=== PATIENT | female | born 1985 | race Caucasian/White ===

== ENCOUNTER 2016-08-06 11:03 | Inpatient (IN) | payer OTHER ==
[~2016-08-06] VITALS: Ht 157.5 cm; Wt 56.0 kg
[2016-08-06] VITALS (9 sets, daily range): BP systolic 97–101; BP diastolic 53–64; PULSE 84–107; TEMP 36.7–36.8; O2SAT 90–96; Ht 157.5 cm; Wt 56.0 kg
[~2016-08-06 11:03] MED LIST: ALBU1AER9 INH
[2016-08-06] MEDS ORDERED: METHYLPREDNISOLONE 125 MG VIAL IV STA (11:46)
--- NOTE | 2016-08-06 11:51 | EMERGENCY ROOM VISIT NOTE ---
History Report prepared by Darryl: Minnie Guerra Under the Supervision of: Dr. Enma Franks M.D. First contact with patient: 11:34 Chief Complaint: CONGESTION Stated Complaint: CHEST CONGESTION, TROUBLE BREATHING Nursing Triage Summary: pt to the ED with c/o congestion and cough History of Present Illness The patient is a 31 year old female who presents to the Emergency Room with complaints of persistent congestion that began prior to arrival. She currently rates her discomfort as a 7/10 in severity. The patient's significant states that the patient has been having recurring bronchitis for the past year. He states that the patient has been to walk-in clinics three times, and has been to the emergency department twice for her bronchitis. The patient's states that the patient did not follow up with her PCP's office after each time. He states that the patient has been given prednisone and antibiotics each time, and states that she gets better with them, but the symptoms always return in a couple months. The patient notes chest pain, coughing and congestion. The patient's states that the patient smokes a pack and a half per day. Source of History: patient, spouse/significant other () Onset: prior to arrival Position: other (global) Symptom Intensity: 7/10 Quality: other (congestion) Timing: other (persistent) Associated Symptoms: + chest pain, + cough Note: Associated Symptoms: congestion Review of Systems See HPI for pertinent positives & negatives. A total of 10 systems reviewed and were otherwise negative. Past Medical & Surgical Medical Problems: (1) Asthma exacerbation (2) Cyclitis (3) Hypoxia (4) Marijuana abuse (5) Meconium in amniotic fluid affecting management of mother (6) Normal (7) Pain, dental (8) (9) Schizophrenia (10) SOB (shortness of breath) (11) Tobacco abuse (12) Vaginal bleeding Surgical Problems: (1) No significant past surgical history Family History No significant family history Social History Smoking Status: Current Every Day Smoker Alcohol Use: none Drug Use: none Marital Status: single Housing Status: lives with family Occupation Status: unemployed Current/Historical Medications Scheduled PRN Albuterol (Proair Hfa), 2 PUFF INH Q4 PRN for SOB/Wheezing Efgcfxz-Lrpyrvinsmfow-Mujwovmp (Excedrin Migraine), 1 TAB PO DAILY PRN for Headache Allergies Coded Allergies: No Known Allergies (Verified , 01/01/13) Physical Exam Vital Signs Date Time Temp Pulse Resp B/P Pulse Ox O2 Delivery O2 Flow Rate FiO2 08/06/16 14:31 93 Nasal Cannula 4.0 08/06/16 14:24 109 18 105/74 87 Room Air 08/06/16 14:12 105 20 92 Nasal Cannula 4.0 08/06/16 13:26 94 08/06/16 13:01 87 18 120/66 97 Nebulizer 08/06/16 12:04 87 20 94 Nasal Cannula 4.0 08/06/16 11:34 91 22 95 Nasal Cannula 4.0 08/06/16 11:25 89 Nasal Cannula 4.0 08/06/16 11:24 97 08/06/16 11:16 89 Room Air 08/06/16 11:10 36.4 102 16 118/83 89 Room Air Physical Exam Vital signs reviewed. General: Generally well appearing, on nasal cannula oxygen. HEENT: No scleral icterus, PERRLA, neck supple. Atraumatic. Cardiovascular: Tachycardic rate and regular rhythm, no extra sounds. Pulmonary: Wheezing throughout bilateral lung nascimento. Increased work of breathing. Abdomen: Soft, nontender, nondistended, positive bowel sounds. Musculoskeletal: Atraumatic, no peripheral edema. Neurologic: Patient awake alert and oriented x 3 Skin: Warm, dry, no rash Medical Decision & Procedures ER Provider Diagnostic Interpretation: X-ray results as stated below per interpretation by me and the radiologist: CHEST ONE VIEW PORTABLE CLINICAL HISTORY: wheezing SHORTNESS OF BREATH COMPARISON STUDY: 09/06/2015 FINDINGS: The cardiac and mediastinal contours are normal. There is no evidence of focal pulmonary consolidation. There is no evidence of failure. No pleural effusions are visualized.[ IMPRESSION: No active disease in the chest. Electronically signed by: Twan Pearce M.D. 08/06/2016 12:05 PM Dictated Date/Time: 08/06/2016 12:05 PM Laboratory Results Test 08/06/16 11:33 08/06/16 11:35 08/06/16 15:05 Immature Granulocyte % (Auto) 0.1 % White Blood Count 9.06 K/uL (4.8-10.8) Red Blood Count 4.45 M/uL (4.2-5.4) Hemoglobin 14.0 g/dL (12.0-16.0) Hematocrit 39.9 % (37-47) Mean Corpuscular Volume 89.7 fL (80-100) Mean Corpuscular Hemoglobin 31.5 pg (25-34) Mean Corpuscular Hemoglobin Concent 35.1 g/dl (32-36) Platelet Count 262 K/uL (130-400) Mean Platelet Volume 10.1 fL (7.4-10.4) Neutrophils (%) (Auto) 68.5 % Lymphocytes (%) (Auto) 23.3 % Monocytes (%) (Auto) 4.1 % Eosinophils (%) (Auto) 3.8 % Basophils (%) (Auto) 0.2 % Neutrophils # (Auto) 6.21 K/uL (1.4-6.5) Lymphocytes # (Auto) 2.11 K/uL (1.2-3.4) Monocytes # (Auto) 0.37 K/uL (0.11-0.59) Eosinophils # (Auto) 0.34 K/uL (0-0.5) Basophils # (Auto) 0.02 K/uL (0-0.2) Immature Granulocyte # (Auto) 0.01 K/uL (0.00-0.02) Total Bilirubin 0.6 mg/dl (0.2-1) Direct Bilirubin 0.1 mg/dl (0-0.2) Aspartate Amino Transf (AST/SGOT) 12 U/L (15-37) Alanine Aminotransferase (ALT/SGPT) 13 U/L (12-78) Alkaline Phosphatase 79 U/L (45-117) Total Protein 7.6 gm/dl (6.4-8.2) Albumin 3.7 gm/dl (3.4-5.0) Prothrombin Time 11.5 SECONDS (9.0-12.0) Prothromb Time International Ratio 1.1 (0.9-1.1) Activated Partial Thromboplast Time 35.0 SECONDS (21.0-31.0) Partial Thromboplastin Ratio 1.3 D-Dimer 340 ug/L FEU (0-500) Influenza Type A (RT-PCR) Neg for Influ A (NEG) Influenza Type B (RT-PCR) Neg for Influ B (NEG) Laboratory results per my review. Medications Administered Medications (Trade) Dose Ordered Sig/Alexandra Route Start Time Stop Time Status Last Admin Dose Admin Albuterol/ Ipratropium (Duoneb) 12 ml ONE ONCE INH 08/06/16 12:00 08/06/16 12:01 DC 08/06/16 12:04 12 ML Methylprednisolone Sodium Succinate (Solu-Medrol IV) 125 mg NOW STAT IV 08/06/16 11:46 08/06/16 11:49 DC 08/06/16 12:00 125 MG Levofloxacin (Levaquin / D5W) 750 mg NOW STAT IV 08/06/16 12:48 08/06/16 12:49 DC 08/06/16 12:58 750 MG Ondansetron HCl (Zofran Inj) 4 mg NOW STAT IV 08/06/16 13:54 08/06/16 13:55 DC 08/06/16 14:03 4 MG Miscellaneous (Xopenex/ Atrovent Neb) 1 ea NOW STAT INH 08/06/16 13:55 08/06/16 13:57 DC 08/06/16 14:12 1 EA ECG Indication: SOB/dyspnea Rate (beats per minute): 76 Rhythm: normal sinus Findings: nonspecific-ST abn (Anterior), no ectopy, other ED Course 1144: Past medical records reviewed. The patient was evaluated in room C1B. A complete history and physical examination was performed. 1146: Ordered Solu-Medrol IV 125 mg IV. 1200: Ordered Duoneb 12 ml INH. 1248: I reevaluated the patient and her lungs still do not sound well. Ordered Levofloxacin 750 mg IV. 1353: I reevaluated the patient and she is doing well, but had vomited. I discussed all the exam findings with her and I discussed the treatment plan. She verbalized complete understanding and agreement. She is going to be evaluated for further treatment. 1354: Ordered Zofran Inj 4 mg IV, Xopenex/Atrovent Neb 1 ea INH, Duoneb 3 ml INH. 1437: I discussed the patients case with Namita Matthews PA-C ([facility]). She is going to evaluate the patient for further treatment. Medical Decision Differential diagnosis: Etiologies such as infections, reactive airway disease, pneumonia, pneumothorax , COPD, CHF, cardiac ischemia, pulmonary embolism, musculoskeletal, gastrointestinal, as well as others were entertained. This pt was evaluated and appeared to be in no distress. PE exam is c/w diffuse wheezing and cough with hypoxia on r/a. Pt continued to desaturate despite an hour long treatment. Pt was given IV solumedral. A CXR is negative. Pt was given a second short neb with continued hypoxia. The importance of smoking cessation was discussed. PT was evaluated by the hospitalist service for further management. Consults Time Called: 1415 Consulting Physician: Namita Matthews PA-C ([facility]) Returned Call: [phone] I discussed the patients case with Namita Matthews PA-C ([facility]). She is going to evaluate the patient for further treatment. Impression Primary Impression: Asthma exacerbation Additional Impressions: Tobacco dependence Hypoxia Scribe Attestation The scribe's documentation has been prepared under my direction and personally reviewed by me in its entirety. I confirm that the note above accurately reflects all work, treatment, procedures, and medical decision making performed by me. Departure Information Dispostion Being Evaluated By Hospitalist Referrals No Doctor, Assigned (PCP) Problem Qualifiers
[2016-08-06 11:58] LABS: BASO % 0.2 %; BASO ABS # 0.02 K/uL (0-0.2); COMPLETE YES; EOS % 3.8 %; HEMATOCRIT 39.9 % (37-47); IG% 0.1 %; LYMPH % 23.3 %; LYMPH ABS # 2.11 K/uL (1.2-3.4); MEAN CELL VOLUME 89.7 fL (80-100); MEAN CORPUSCULAR HEMOGLOBIN 31.5 pg (25-34); MEAN CORPUSCULAR HGB CONC 35.1 g/dl (32-36); MEAN PLATELET VOLUME 10.1 fL (7.4-10.4); MONO % 4.1 %; NEUT % 68.5 %; PLATELET COUNT 262 K/uL (130-400); RED BLOOD COUNT 4.45 M/uL (4.2-5.4); WHITE BLOOD COUNT 9.06 K/uL (4.8-10.8)
[2016-08-06] MEDS ORDERED: ALBUT/IPRATROP 3MG/0.5MG NEB 3 ML VIAL INH ONE ×2 (12:00)
[2016-08-06 12:05] LABS: BUN/CREATININE RATIO 16.4 (10-20); CALCIUM 9.1 mg/dl (8.5-10.1); CREATININE 0.65 mg/dl (0.60-1.20)
--- NOTE | 2016-08-06 12:07 | DIAGNOSTIC IMAGING REPORT ---
CHEST ONE VIEW PORTABLE CLINICAL HISTORY: wheezing SHORTNESS OF BREATH COMPARISON STUDY: 09/06/2015 FINDINGS: The cardiac and mediastinal contours are normal. There is no evidence of focal pulmonary consolidation. There is no evidence of failure. No pleural effusions are visualized.[ IMPRESSION: No active disease in the chest. Electronically signed by: Twan Pearce M.D. 08/06/2016 12:05 PM Dictated Date/Time: 08/06/2016 12:05 PM
[2016-08-06] MEDS ORDERED: LEVAQUIN 750MG / 150ML D5W IV STA (12:48)
[2016-08-06] MEDS ORDERED: ONDANSETRON INJ 2 MG/ML 2 ML VIAL IV STA (13:54)
[2016-08-06] MEDS ORDERED: ALBUT/IPRATROP 3MG/0.5MG NEB 3 ML VIAL INH STA (13:55)
[2016-08-06] MEDS ORDERED: LEVALBUTEROL/IPRATROPIUM NEB INH STA (13:55)
[2016-08-06] MEDS ORDERED: ASPI-390 PO (15:09)
[2016-08-06] MEDS ORDERED: ACETAMINOPHEN 325 MG TAB PO PRN (15:15)
[2016-08-06] MEDS ORDERED: LEVALBUTEROL 0.63MG/3 ML NEB INH PRN (15:30)
[2016-08-06] MEDS ORDERED: ALBUTEROL HFA 8 GM INHALER INH PRN (15:45)
--- NOTE | 2016-08-06 15:57 | History and Physical ---
History & Physical Date & Time of Service: Aug 06, 2016 at 15:23 Chief Complaint: Chest Congestion, Trouble Breathing Primary Care Physician: No Doctor, Assigned History of Present Illness Source: patient, hospital records This is a 31 year old female with PMH of current tobacco use, marijuana use, and schizophrenia who presents to the ED with shortness of breath. Patient has not seen a PCP for > 1 year. She reports recurrent breathing issues for 1 year on and off. She reports being seen twice in [facility] ER and twice at Urgent Care in the past 1 year for bronchitis episodes treated with antibiotics and albuterol inhaler. Patient was last seen at urgent care 2 months ago, symptoms resolved with antibiotics, then recurred 1 week later. She reports symptoms of SOB, wheezing, cough with yellow-green sputum, posttussive vomiting, poor PO intake, aches in abdomen and shoulders attributed to coughing, headaches, intermittent chest pains, subjective warmth and chills. She did not measure her temperature at home. She tried taking a Z-pack 1 week ago, which was leftover from a family member. She states it helped but symptoms recurred after finishing the course. Patient has been albuterol inhaler as often as 2 puffs every 10 minutes at home. She feels her breathing is improved after breathing treatments given in ER. She describes chest pains as soreness on the right side which is intermittent lasting minutes, and is currently resolved. Chest pains happen at random or after coughing episodes. Patient denies nasal congestion, sore throat , ear ache, palpitations, abdominal pain, diarrhea, urinary changes, calf pain, edema. She states schizophrenia has been under control without medications. Patient has never been tested for asthma or COPD. She denies any known cardiac history. No recent travel or sick contact. Past Medical/Surgical History Medical Problems: Marijuana abuse Status: Chronic Schizophrenia Status: Chronic Tobacco abuse Status: Chronic Surgical Problems: No significant past surgical history Status: Chronic Family History No significant family history Denies family history of lung or cardiac disease. Social History Smoking Status: Current Every Day Smoker (1.5 ppd x 8 years) Alcohol Use: none Drug Use: marijuana (once per week) Marital Status: single Housing status: lives with family Occupational Status: unemployed Immunizations History of Influenza Vaccine: Yes Influenza Vaccine Date: Jul 21, 2011 History of Tetanus Vaccine?: Unknown History of Pneumococcal: Unknown History of Hepatitis B Vaccine: Unknown Multi-Drug Resistant Organisms History of MDRO: No Allergies Coded Allergies: No Known Allergies (Verified , 01/01/13) Home Medications Scheduled PRN Albuterol (Proair Hfa), 2 PUFF INH Q4 PRN for SOB/Wheezing Sdsowdb-Lemyrxrouhcrq-Jidkeoqx (Excedrin Migraine), 1 TAB PO DAILY PRN for Headache Review of Systems Ten point review of systems performed with pertinent positives and negatives noted in HPI. Physical Exam Vital Signs Date Time Temp Pulse Resp B/P Pulse Ox O2 Delivery O2 Flow Rate FiO2 08/06/16 14:31 93 Nasal Cannula 4.0 08/06/16 14:24 109 18 105/74 87 Room Air 08/06/16 14:12 105 20 92 Nasal Cannula 4.0 08/06/16 13:26 94 08/06/16 13:01 87 18 120/66 97 Nebulizer 08/06/16 12:04 87 20 94 Nasal Cannula 4.0 08/06/16 11:34 91 22 95 Nasal Cannula 4.0 08/06/16 11:25 89 Nasal Cannula 4.0 08/06/16 11:24 97 08/06/16 11:16 89 Room Air 08/06/16 11:10 36.4 102 16 118/83 89 Room Air General Appearance: WD/WN, no apparent distress Head: normocephalic, atraumatic Eyes: normal inspection, sclerae normal ENT: hearing grossly normal, pharynx normal Neck: supple, trachea midline Respiratory/Chest: chest non-tender, no respiratory distress, no accessory muscle use, + decreased breath sounds, + wheezing (mod to severe expiratory wheezing), + pertinent finding (saturating mid 90s on 4 liters NC) Cardiovascular: no murmur, normal peripheral pulses, + tachycardia (regular rhythm, mild tachycardia rate 90s) Abdomen/GI: normal bowel sounds, non tender, soft Extremities/Musculoskelatal: normal inspection, no calf tenderness, normal capillary refill, no pedal edema Neurologic/Psych: alert, normal mood/affect, oriented x 3, + pertinent finding (grossly nonfocal) Skin: normal color, warm/dry Diagnostics Laboratory Results Results Past 24 Hours Test 08/06/16 11:33 08/06/16 15:05 08/06/16 15:12 Range/Units White Blood Count 9.06 4.8-10.8 K/uL Red Blood Count 4.45 4.2-5.4 M/uL Hemoglobin 14.0 12.0-16.0 g/dL Hematocrit 39.9 37-47 % Mean Corpuscular Volume 89.7 80-100 fL Mean Corpuscular Hemoglobin 31.5 25-34 pg Mean Corpuscular Hemoglobin Concent 35.1 32-36 g/dl Platelet Count 262 130-400 K/uL Mean Platelet Volume 10.1 7.4-10.4 fL Neutrophils (%) (Auto) 68.5 % Lymphocytes (%) (Auto) 23.3 % Monocytes (%) (Auto) 4.1 % Eosinophils (%) (Auto) 3.8 % Basophils (%) (Auto) 0.2 % Neutrophils # (Auto) 6.21 1.4-6.5 K/uL Lymphocytes # (Auto) 2.11 1.2-3.4 K/uL Monocytes # (Auto) 0.37 0.11-0.59 K/uL Eosinophils # (Auto) 0.34 0-0.5 K/uL Basophils # (Auto) 0.02 0-0.2 K/uL RDW Standard Deviation 40.5 36.4-46.3 fL RDW Coefficient of Variation 12.5 11.5-14.5 % Immature Granulocyte % (Auto) 0.1 % Immature Granulocyte # (Auto) 0.01 0.00-0.02 K/uL Sodium Level 137 136-145 mmol/L Potassium Level 4.0 3.5-5.1 mmol/L Chloride Level 100 98-107 mmol/L Carbon Dioxide Level 29 21-32 mmol/L Anion Gap 8.0 3-11 mmol/L Blood Urea Nitrogen 11 7-18 mg/dl Creatinine 0.65 0.60-1.20 mg/dl Est Creatinine Clear Calc Drug Dose 101.0 ml/min Estimated GFR () 139.1 Estimated GFR (Non- 120.0 BUN/Creatinine Ratio 16.4 10-20 Random Glucose 102 70-99 mg/dl Calcium Level 9.1 8.5-10.1 mg/dl Total Bilirubin 0.6 0.2-1 mg/dl Direct Bilirubin 0.1 0-0.2 mg/dl Aspartate Amino Transf (AST/SGOT) 12 15-37 U/L Alanine Aminotransferase (ALT/SGPT) 13 12-78 U/L Alkaline Phosphatase 79 45-117 U/L Total Protein 7.6 6.4-8.2 gm/dl Albumin 3.7 3.4-5.0 gm/dl Creatine Kinase MB Ratio 0-3.0 Diagnostic Radiology CHEST ONE VIEW PORTABLE CLINICAL HISTORY: wheezing SHORTNESS OF BREATH COMPARISON STUDY: 09/06/2015 FINDINGS: The cardiac and mediastinal contours are normal. There is no evidence of focal pulmonary consolidation. There is no evidence of failure. No pleural effusions are visualized.[ IMPRESSION: No active disease in the chest. EKG NSR, rate 76, T wave inversion present in V2 and V3- not present on prior EKG in 2009 Impression Assessment and Plan SHORTNESS OF BREATH with HYPOXIA Probable exacerbation of underlying asthma, undiagnosed Was hypoxic to 80s on RA even after neb treatments; now saturating mid 90s on 4L NC Afebrile, no leukocytosis, + tachycardia, no hypotension CXR- no infiltrate Treated with Levaquin, IV Solu-Medrol, hour long Duoneb, and Xopenex in ER Given tachycardia, SOB, hypoxia, will check D dimer- pending Check blood cultures and sputum culture; check influenza PCR Check CT chest IV Solu-Medrol 40 mg TID Duonebs QID and Xopenex nebs PRN Continue Levaquin 750 mg daily Continue supplemental O2 Consult pulmonology CHEST PAIN Check D dimer EKG shows new T wave inversion in V2- V3, not present on prior EKG Check cardiac enzymes and trend Check echo H/O SCHIZOPHRENIA Controlled as per patient Not on medication TOBACCO ABUSE Counselled for cessation DVT PROPHYLAXIS Lovenox SQ DISPOSITION Has not followed with primary care for > 1 year Has appointment with Dr. Maria on 08/10/16 Patient seen in collaboration with Dr. Ansari. Please see his addendum. Attending Note: Patient is a 31 Yr old female with PMH of Schizophrenia, Tobacco use disorder, Marijuana use presents with history of SOB, wheezing, cough with yellowish productive sputum, intermittent chest pain associated with coughing, chills. He has been having recurrent URIs and has been using albuterol more frequently since last 2 days. Physical Exam: Vitals signs as noted above General: WD/WN, no apparent distress Head: normocephalic, atraumatic Eyes: normal inspection, sclerae normal, EOMI, PERRLA Neck: supple, trachea midline Resp: Decreased breath sounds bilaterally, no accessory muscle use, wheezing diffusely Cardiovascular:S1, S2, no murmur, tachycardia Abdomen/GI: normal bowel sounds, non tender, soft Extremities/Musculoskelatal: normal inspection, no calf tenderness, normal capillary refill, no pedal edema Neurologic/Psych: alert, normal mood/affect, no focal deficits Skin:normal color, warm/dry Assessment and plan: Acute hypoxic respiratory failure Secondary to reactive airway disease with bronchitis CXR: wnl Start on IV antibiotics, bronchodilators, glucocorticoids Get CT chest, d-dimer Oxygen support Consult Pulmonary Blood/sputum cultures Chest pain: R/O ACS EKG: new T wave inversion in anterior leads Trend cardiac enzymes Check ECHO Agree with assessment and plan of Katie Matthews PA-C as above VTE Prophylaxis VTE Risk Assessment Done? Y/N: Yes Risk Level: Moderate
[2016-08-06 16:00] LABS: CKMB/CK RATIO 1.3 (0-3.0)
[2016-08-06 16:56] LABS: INR 1.1 (0.9-1.1); PARTIAL THROMBOPLASTIN RATIO 1.3; PROTHROMBIN TIME (PATIENT) 11.5 SECONDS (9.0-12.0)
[2016-08-06 17:19] LABS: INFLUENZA A PCR Neg for Influ A (NEG); INFLUENZA B PCR Neg for Influ B (NEG)
[2016-08-06 18:29] LABS: CKMB/CK RATIO 1.5 (0-3.0)
--- NOTE | 2016-08-06 18:58 | DIAGNOSTIC IMAGING REPORT ---
CT OF THE CHEST WITHOUT IV CONTRAST CLINICAL HISTORY: Shortness of breath. Chest congestion. COMPARISON STUDY: Chest radiograph performed earlier today. CT DOSE: 167.27 mGycm TECHNIQUE: Axial images of the chest were obtained without IV contrast. Images were reviewed in the axial, sagittal, and coronal planes. IV contrast was not administered for this examination. FINDINGS: No enlarged axillary, mediastinal or hilar lymph nodes are present. The size of the heart is normal. There is no pericardial effusion. The caliber of the thoracic aorta is normal. Central airways are patent. Multifocal groundglass opacities are noted throughout both lungs. There is mild bronchial wall thickening with multifocal mucus plugging. No pneumothorax or pleural effusion is present. There is no lobar consolidation. The bony thorax and upper abdomen are unremarkable on this unenhanced study. IMPRESSION: 1. Multifocal groundglass opacities throughout both lungs with mild bronchial wall thickening and multifocal mucus plugging. The findings suggest an infectious process. No lobar consolidation. 2. No pleural effusion. Patent central airways. Electronically signed by: Bart Pineda M.D. 08/06/2016 6:57 PM Dictated Date/Time: 08/06/2016 6:52 PM
[2016-08-06] MEDS: ALBUT/IPRATROP 3MG/0.5MG NEB 3 ML VIAL INH SCH (19:50)
[2016-08-06] MEDS ORDERED: NICOTINE 14 MG/24 HR TDSY TD ONE (20:03)
[2016-08-06] MEDS: ENOXAPARIN 40 MG/0.4 ML SYR SC SCH (20:47)
[2016-08-06] MEDS: BUDESONIDE/FORMOTEROL FUMARATE 160/4.5 60 PUFFS/INHALER INH SCH (20:48)
[2016-08-06] MEDS: METHYLPREDNISOLONE IV 40 MG in SYRINGE 0 ML IV SCH (20:49)
[2016-08-06 22:26] LABS: MANUAL MICROSCOPIC REQUIRED? NO; REVIEW REQ? YES; URINE APPEARANCE CLOUDY (CLEAR); URINE BILIRUBIN NEG (NEG); URINE COLOR DK YELLOW; URINE EPITHELIAL CELL AUTO >30 /lpf (0-5); URINE NITRITE NEG (NEG); URINE SPECIFIC GRAVITY 1.025 (1.000-1.030); UROBILINOGEN NEG (NEG); ZZUR CULT IF INDIC CLEAN CATCH YES
[2016-08-07] VITALS (9 sets, daily range): BP systolic 100–115; BP diastolic 59–72; PULSE 69–110; TEMP 36.8–37.2; O2SAT 90–98
[2016-08-07] MEDS: METHYLPREDNISOLONE IV 40 MG in SYRINGE 0 ML IV SCH ×3 (05:59→22:22)
[2016-08-07] MEDS: ALBUT/IPRATROP 3MG/0.5MG NEB 3 ML VIAL INH SCH ×4 (07:32→19:13)
[2016-08-07 08:02] LABS: HEMATOCRIT 38.5 % (37-47); MEAN CELL VOLUME 89.7 fL (80-100); MEAN CORPUSCULAR HEMOGLOBIN 31.2 pg (25-34); MEAN CORPUSCULAR HGB CONC 34.8 g/dl (32-36); PLATELET COUNT 266 K/uL (130-400); RED BLOOD COUNT 4.29 M/uL (4.2-5.4); WHITE BLOOD COUNT 13.54 K/uL (4.8-10.8)
[2016-08-07] MEDS: NICOTINE 14 MG/24 HR TDSY TD SCH (08:02)
[2016-08-07] MEDS: TIOTROPIUM BROMIDE 5 PUFF/90 MCG INH INH SCH (08:03)
[2016-08-07] MEDS: ONDANSETRON INJ 2 MG/ML 2 ML VIAL IV PRN ×2 (08:08→20:15)
[2016-08-07] MEDS: BUDESONIDE/FORMOTEROL FUMARATE 160/4.5 60 PUFFS/INHALER INH SCH ×2 (08:08→20:13)
--- NOTE | 2016-08-07 08:09 | PULMONARY CONSULTATION ---
DATE OF CONSULTATION: 08/07/2016 DATE OF CONSULTATION: 08/07/2016. HISTORY OF PRESENT ILLNESS: This patient is a 31-year-old female who was admitted through the Emergency Room with shortness of breath and cough. Dr. Matthews has asked me to evaluate the patient from a pulmonary standpoint. The patient does not have a family physician that when she gets ill she usually uses [facility] or the Emergency Room. She has had multiple evaluations in the Emergency Room. She was seen here last year in August for very similar symptoms. About 2 weeks ago she developed a cough associated with no sputum production and shortness of breath. She states she had some congestion in her chest with chest discomfort rated a 7/10. She has had episodes of recurrent "bronchitis" over the last year requiring evaluations at [facility] and walk-in clinics 3 times. She was placed on antibiotics, has an inhaler at home, the name of which she cannot recall. She states she is not and lives with her 2 children, age 3 and 9. Her 9-year-old son has asthma. When she is given prednisone and antibiotics it clear up very quickly for her. Unfortunately she is smoking 2 packs of cigarettes daily, started smoking at age 23. Smokes marijuana several times a day. According to the patient, she is only living with her children. Her father lives in [place], her mother lives in [place]. Nonetheless, she denies aspiration or travel history, environmental history is unremarkable. No birds are at home but she does have a cat that sleeps in her bed. It was ill about 2 months ago with an eye infection which cleared up with drops. The cat has not been coughing or has not had any other illnesses. None of her children have been ill. She did have a CT scan that reveals bilateral pulmonary infiltrates. She states she is 100% better today that she was at the time of admission. We discussed smoking cessation at great length. Again, travel history, environmental histories are unremarkable. PAST MEDICAL HISTORY: Positive for asthma with exacerbation, dental pain, schizophrenia, vaginal bleeding, 2 pregnancies. PAST SURGICAL HISTORY: Unremarkable. She has had an abnormal Pap smear, when I reviewed the [facility] [employer] records. SOCIAL HISTORY: She smokes 2 packs a day for about 8 years. He smokes marijuana on a daily basis, not an alcohol user. She is single, lives with her 2 children and is unemployed. Mostly she states she cares for her children. ALLERGIES: None. FAMILY HISTORY: She has several siblings, none have any particular problems. Her parents are alive and in good health otherwise. MEDICATIONS: Noted. According to Dr. Franks's note she had wheezing throughout both lungs at the time of admission with oxygen saturation 93% on 4 liters, 89% on room air and a pulse of 109 at the time of admission to the Emergency Room. PHYSICAL EXAMINATION: VITAL SIGNS: Now her blood pressure is 100/59, her pulse is 80 and regular, respiratory rate 16, oxygen saturation 94% on room air, 95% on 2 liters. Weight is 57.2 kilograms. HEAD, EYES, EARS, NOSE, AND THROAT: Unremarkable. No tenderness over the sinuses. No thrush noted. No abnormalities in the posterior pharynx noted. Trachea is midline with no evidence of upper airway obstruction. No nodes are palpable. HEART: Regular rate and rhythm. No murmurs are heard. LUNGS: Reveal some coarse breath sounds and some mild wheezing bilaterally, mostly posterior. Anterior the lungs are clear. With forced expiratory maneuver she has a bit of coughing and I can hear some coarse breath sounds. No crackles are noted. ABDOMEN: Soft and nontender. EXTREMITIES: She has no cyanosis, clubbing or edema. CT scan of the chest reveals multiple ground-glass opacities bilaterally with some bronchial thickening, some mucus plugging, particularly at the lower lung nascimento. No actual lobar consolidation is noted. No significant adenopathy is noted. Upper abdominal organs appear to be unremarkable. LABORATORY DATA: White count 9.06, hemoglobin 14, hematocrit 39.9 with platelet count of 262,000. Eosinophil count was unremarkable. PRP was normal. Liver function studies are normal. CK enzymes are unremarkable. Urinalysis revealed a few inflammatory cells, some epithelial cells and +1 bacteria. Influenza A and B PCR both negative. The patient's electrocardiogram done in the Emergency Room was normal with slight enlargement of the P-waves in II, III, and aVF suggestive of perhaps some mild right atrial enlargement. There are some nonspecific T-wave changes with T-wave inversion noted in V1 and V2 that could be just from position. Blood cultures and urine cultures are pending. IMPRESSION: 1. Bilateral pneumonitis. This may have been the etiology for her symptoms. 2. Asthma with continued tobacco use with the use of marijuana. RECOMMENDATIONS: 1. Check a chlamydia, mycoplasma, legionella titers. 2. Continue on the Levaquin at her present dose, Spiriva. She has Nicoderm patch on. 3. Continue on methylprednisolone 40 mg IV q. 8 hours, Symbicort 160/4.5 two puffs b.i.d. and use the DuoNeb 4 times a day and then q. 4 hours p.r.n., that will help to enhance mucociliary clearance. 4. Smoking cessation. She will need instructions for this. I discussed it with her at great length. She states she is willing to try. Avoid marijuana smoking. There have been reports of literature of fungal disease associated with marijuana, although I do not think this is a fungal pneumonitis. This may be pneumonitis just from viral infections and she was sick 2 weeks prior to admission. It is clear she has asthma with multiple admissions to outpatient facilities for bronchospasm and each time she uses prednisone it improves. I would also continue with good DVT prophylaxis with Lovenox 40 mg subQ that she is receiving now and SCDs. Thanks for asking me to evaluate Ms. Jeffrey and I will be glad to see her again over the weekend.
--- NOTE | 2016-08-07 08:35 | ECHOCARDIOGRAM REPORT ---
*NOTICE TO RECEIVING CONSTITUTION PARTY AGENCY This information is strictly Confidential and protected under [place] law. [place] law prohibits you from making any further disclosure of this information unless further disclosure is expressly permitted by the written consent of the person to whom it pertains or is authorized by law. A general authorization for the release of medical or other information is not sufficient for this purpose. Hospital accepts no responsibility if the information is made available to any other person, INCLUDING THE PATIENT. Interpretation Summary * Name: AMY JENKINS Study Date: 08/07/2016 07:02 AM BP: 98/68 mmHg * Patient Location: [facility] HR: 69 * : 1985 (M/d/yyyy) Gender: Female Height: 62 in * Age: 31 yrs Ethnicity: CA Weight: 126 lb * Ordering Physician: Katie Matthews * Performed By: Alethea Ramsey RDCS * * Reason For Study: Chest pain, nonspecific EKG changes * BSA: 1.6 m2 * -- Conclusions -- * The left ventricular wall motion is normal. * The LV Ejection Fraction = 60-65%. * The inferior vena cava is mildly dilated with 50% inspiratory collapse , consistent with an intermediate right atrial pressure of 8 mm Hg. * The left ventricular diastolic function is normal. * Doppler findings do not suggest pulmonary hypertension. * There is no significant valvular heart disease. Procedure Details * A complete two-dimensional transthoracic echocardiogram was performed (2D, M-mode, Doppler and color flow Doppler). Left Ventricle * The left ventricle is normal in size. * There is normal left ventricular wall thickness. * Left ventricular systolic function is normal. * Ejection Fraction = 60-65%. * The left ventricular wall motion is normal. Right Ventricle * The right ventricle is normal size. * The right ventricular systolic function is normal as assessed by tricuspid annular plane systolic excursion (TAPSE) (normal >1.5 cm). Atria * The left atrial size is normal. * Right atrial size is normal. * There is no evidence of atrial septal defect, but resolution does not allow assessment for a patent foramen ovale. Mitral Valve * The mitral valve is normal. * There is no mitral valve stenosis. * Significant mitral regurgitation is absent. Tricuspid Valve * The tricuspid valve is normal. * There is no tricuspid stenosis. * Significant tricuspid regurgitation is absent. * Doppler findings do not suggest pulmonary hypertension. Aortic Valve * The aortic valve is trileaflet. * Aortic stenosis is absent. * There is no significant aortic regurgitation. Pulmonic Valve * The pulmonary valve is not well seen, but the Doppler examination is normal without significant regurgitation or stenosis. Great Vessels * The aortic root and proximal ascending aorta are normal sized. Pericardium/Pleural * There is no pericardial effusion. Great Vessels * The inferior vena cava is mildly dilated with 50% inspiratory collapse , consistent with an intermediate right atrial pressure of 8 mm Hg. Left Ventricular Diastolic Function * The left ventricular diastolic function is normal. MMode 2D Measurements and Calculations IVSd 0.74 cm LVIDd 4.3 cm LVIDs 2.8 cm LVPWd 0.75 cm IVS/LVPW 0.99 FS 35.5 % EDV(Teich) 83.4 ml ESV(Teich) 29.0 ml EF(Teich) 65.3 % EDV(cubed) 79.9 ml ESV(cubed) 21.4 ml EF(cubed) 73.2 % LV mass(C)d 96.2 grams LV mass(C)dI 61.3 grams/m\S\2 CO(Teich) 4.2 l/min CI(Teich) 2.7 l/min/m\S\2 SV(Teich) 54.4 ml SI(Teich) 34.6 ml/m\S\2 CO(cubed) 4.5 l/min CI(cubed) 2.9 l/min/m\S\2 SV(cubed) 58.4 ml SI(cubed) 37.2 ml/m\S\2 Ao root diam 2.8 cm Ao root area 6.3 cm\S\2 ACS 1.7 cm LA dimension 2.4 cm asc Aorta Diam 2.6 cm LA/Ao 0.85 LVOT diam 2.0 cm LVOT area 3.2 cm\S\2 LVAd ap4 26.9 cm\S\2 LVLd ap4 7.9 cm EDV(MOD-sp4) 75.1 ml LVAs ap4 14.7 cm\S\2 LVLs ap4 6.2 cm ESV(MOD-sp4) 29.8 ml EF(MOD-sp4) 60.3 % LVAd ap2 26.1 cm\S\2 LVLd ap2 7.1 cm EDV(MOD-sp2) 77.6 ml LVAs ap2 14.2 cm\S\2 LVLs ap2 5.7 cm ESV(MOD-sp2) 28.7 ml EF(MOD-sp2) 63.0 % CO(MOD-sp4) 3.5 l/min CI(MOD-sp4) 2.2 l/min/m\S\2 SV(MOD-sp4) 45.3 ml SI(MOD-sp4) 28.8 ml/m\S\2 CO(MOD-sp2) 3.8 l/min CI(MOD-sp2) 2.4 l/min/m\S\2 SV(MOD-sp2) 48.9 ml SI(MOD-sp2) 31.1 ml/m\S\2 Doppler Measurements and Calculations MV E max benjie 105.7 cm/sec MV A max benjie 48.5 cm/sec MV E/A 2.2 MV dec time 0.28 sec Ao V2 max 123.4 cm/sec Ao max PG 6.1 mmHg Ao max PG (full) 1.0 mmHg ROSALIND(V,A) 2.9 cm\S\2 ROSALIND(V,D) 2.9 cm\S\2 LV V1 max PG 5.1 mmHg LV V1 max 112.7 cm/sec PA V2 max 104.7 cm/sec PA max PG 4.4 mmHg PA acc slope 520.8 cm/sec\S\2 PA acc time 0.14 sec TR max benjie 199.8 cm/sec PA pr(Accel) 14.0 mmHg
[2016-08-07 08:38] LABS: BLOOD UREA NITROGEN 10 mg/dl (7-18); BUN/CREATININE RATIO 15.8 (10-20); CALCIUM 9.3 mg/dl (8.5-10.1); CARBON DIOXIDE 28 mmol/L (21-32); CHLORIDE 103 mmol/L (98-107); GLUCOSE 135 mg/dl (70-99); MAGNESIUM 2.1 mg/dl (1.8-2.4); POTASSIUM 3.8 mmol/L (3.5-5.1); SODIUM 139 mmol/L (136-145)
[2016-08-07 08:42] LABS: CKMB/CK RATIO 1.2 (0-3.0)
[2016-08-07] MEDS ORDERED: LEVOFLOXACIN / D5W 750 MG in PREMIXED IN D5W 150 ML IV SCH (12:00)
--- NOTE | 2016-08-07 17:05 | Progress Note ---
Internal Med Progress Note Date of Service: Aug 07, 2016. Provider Documentation: SUBJECTIVE: feeling better sob improved still has cough afebrile no chest pain OBJECTIVE: Vital Signs-as noted below Exam: General-alert and oriented ENT-normal hearing Neck-no neck masses Lungs-cta b/l no wheezing or crackles Heart-s1 and s2 heard regular rate and rhythm no murmurs Abdomen-soft bowel sounds present non tender no distension Extremities-no erythema Neuro-alert and awake moves extremities Lab data as noted below. ASSESSMENT & PLAN: SHORTNESS OF BREATH with HYPOXIA Probable exacerbation of underlying asthma, undiagnosed Was hypoxic in 80s on RA in ER even after neb treatments; now saturating mid 90s on 4L NC cxr no infiltarte ct chest shows - mucus plugging and possible infectious process hx of tobacco abuse and marijuana on Levaquin , nebs and steroids pulmonary sent for atypical titers improving will monitor CHEST PAIN negative D dimer EKG shows new T wave inversion in V2- V3, not present on prior EKG CE negative echo unremarkable asymptomatic today H/O SCHIZOPHRENIA Controlled as per patient Not on medication TOBACCO ABUSE Counselling for cessation DVT PROPHYLAXIS Lovenox SQ DISPOSITION To be determined Has not followed with primary care for > 1 year Has appointment with Dr. Maria on 08/10/16 Vital Signs: Date Time Temp Pulse Resp B/P Pulse Ox O2 Delivery O2 Flow Rate FiO2 08/07/16 16:12 84 20 98 Room Air 08/07/16 15:35 37.2 98 20 106/61 93 08/07/16 12:00 Room Air 08/07/16 11:47 36.8 110 18 115/72 90 Room Air 08/07/16 11:31 82 20 96 Room Air 08/07/16 08:00 Room Air 08/07/16 07:44 36.8 85 18 101/64 94 Room Air 08/07/16 07:34 69 20 92 Room Air 08/07/16 04:00 Nasal Cannula 3.0 08/07/16 03:55 36.8 86 16 100/59 94 Room Air 08/06/16 23:59 95 Nasal Cannula 2.0 08/06/16 23:58 36.8 90 16 101/53 95 Nasal Cannula 2.0 08/06/16 23:26 84 20 96 Nasal Cannula 2.0 08/06/16 20:00 Nasal Cannula 3.0 08/06/16 19:57 36.8 93 20 97/56 96 3.0 08/06/16 19:51 88 20 96 Nasal Cannula 3.0 Lab Results: Results Past 24 Hours Test 08/06/16 17:52 08/06/16 20:54 08/07/16 00:00 08/07/16 07:43 Range/Units Total Creatine Kinase 55 49 26-192 U/L Creatine Kinase MB 0.8 0.6 0.5-3.6 ng/ml Creatine Kinase MB Ratio 1.5 1.2 0-3.0 Troponin I < 0.015 < 0.015 0-0.045 ng/ml Urine Color DK YELLOW Urine Appearance CLOUDY CLEAR Urine pH 5.0 4.5-7.5 Urine Specific Beaman 1.025 1.000-1.030 Urine Protein TRACE NEG Urine Glucose (UA) NEG NEG Urine Ketones NEG NEG Urine Occult Blood NEG NEG Urine Nitrite NEG NEG Urine Bilirubin NEG NEG Urine Urobilinogen NEG NEG Urine Leukocyte Esterase TRACE NEG Urine WBC (Auto) 10-30 0-5 /hpf Urine RBC (Auto) 0-4 0-4 /hpf Urine Hyaline Casts (Auto) 5-10 0-5 /lpf Urine Epithelial Cells (Auto) >30 0-5 /lpf Urine Bacteria (Auto) 1+ NEG White Blood Count 13.54 4.8-10.8 K/uL Red Blood Count 4.29 4.2-5.4 M/uL Hemoglobin 13.4 12.0-16.0 g/dL Hematocrit 38.5 37-47 % Mean Corpuscular Volume 89.7 80-100 fL Mean Corpuscular Hemoglobin 31.2 25-34 pg Mean Corpuscular Hemoglobin Concent 34.8 32-36 g/dl RDW Standard Deviation 41.5 36.4-46.3 fL RDW Coefficient of Variation 12.7 11.5-14.5 % Platelet Count 266 130-400 K/uL Mean Platelet Volume 10.0 7.4-10.4 fL Sodium Level 139 136-145 mmol/L Potassium Level 3.8 3.5-5.1 mmol/L Chloride Level 103 98-107 mmol/L Carbon Dioxide Level 28 21-32 mmol/L Anion Gap 8.0 3-11 mmol/L Blood Urea Nitrogen 10 7-18 mg/dl Creatinine 0.60 0.60-1.20 mg/dl Est Creatinine Clear Calc Drug Dose 109.5 ml/min Estimated GFR () 142.8 Estimated GFR (Non- 123.2 BUN/Creatinine Ratio 15.8 10-20 Random Glucose 135 70-99 mg/dl Calcium Level 9.3 8.5-10.1 mg/dl Magnesium Level 2.1 1.8-2.4 mg/dl Test 08/07/16 10:08 Range/Units Microbiology Results 08/06/16 Blood Culture, Received Pending 08/06/16 Blood Culture, Received Pending 08/06/16 Urine Culture - Preliminary, Resulted NO GROWTH - LESS THAN 1,000 COLONIES/...
[2016-08-07] MEDS: ENOXAPARIN 40 MG/0.4 ML SYR SC SCH (20:13)
[2016-08-08 00:38] VITALS: BP 108/65; PULSE 85; TEMP 36.8; O2SAT 96
[2016-08-08 04:17] VITALS: BP 122/74; PULSE 84; TEMP 36.5; O2SAT 94
[2016-08-08 07:27] VITALS: PULSE 69; O2SAT 94
[2016-08-08 07:29] VITALS: BP 94/59; PULSE 69; TEMP 36.7; O2SAT 94
[2016-08-08] MEDS: ALBUT/IPRATROP 3MG/0.5MG NEB 3 ML VIAL INH SCH (07:37)
[2016-08-08] MEDS: NICOTINE 14 MG/24 HR TDSY TD SCH (07:54)
[2016-08-08] MEDS: BUDESONIDE/FORMOTEROL FUMARATE 160/4.5 60 PUFFS/INHALER INH SCH (07:54)
[2016-08-08] MEDS: METHYLPREDNISOLONE IV 40 MG in SYRINGE 0 ML IV SCH (07:54)
[2016-08-08] MEDS: TIOTROPIUM BROMIDE 5 PUFF/90 MCG INH INH SCH (07:55)
[2016-08-08] MEDS: ONDANSETRON INJ 2 MG/ML 2 ML VIAL IV PRN (08:15)
[2016-08-10 12:02] LABS: LEGIONELLA ANTIGEN NOT DETECTED
[2016-08-11 15:36] LABS: CHLAMYDIA PNEUMONIAE IgG <1:64 (<1:64); CHLAMYDIA PSITTACI IgG <1:64 (<1:64); CHLAMYDIA TRACHOMATIS IgG <1:64 (<1:64)
--- NOTE | 2016-08-15 19:10 | Discharge Summary ---
Discharge Summary Admission Date: Aug 06, 2016 at 15:11 Discharge Disposition: Home (absconding from room) Principal Diagnosis: asthma exacerbation Secondary Diagnoses/Problems: Marijuana abuse Status: Chronic Schizophrenia Status: Chronic Tobacco abuse Status: Chronic Procedures: CHEST CT: 1. Multifocal groundglass opacities throughout both lungs with mild bronchial wall thickening and multifocal mucus plugging. The findings suggest an infectious process. No lobar consolidation. 2. No pleural effusion. Patent central airways. Consultations: PULMONARY Admission Information HPI (per Admitting provider): This is a 31 year old female with PMH of current tobacco use, marijuana use, and schizophrenia who presents to the ED with shortness of breath. Patient has not seen a PCP for > 1 year. She reports recurrent breathing issues for 1 year on and off. She reports being seen twice in [facility] and twice at Urgent Care in the past 1 year for bronchitis episodes treated with antibiotics and albuterol inhaler. Patient was last seen at urgent care 2 months ago, symptoms resolved with antibiotics, then recurred 1 week later. She reports symptoms of SOB, wheezing, cough with yellow-green sputum, posttussive vomiting, poor PO intake, aches in abdomen and shoulders attributed to coughing, headaches, intermittent chest pains, subjective warmth and chills. She did not measure her temperature at home. She tried taking a Z-pack 1 week ago, which was leftover from a family member. She states it helped but symptoms recurred after finishing the course. Patient has been albuterol inhaler as often as 2 puffs every 10 minutes at home. She feels her breathing is improved after breathing treatments given in ER. She describes chest pains as soreness on the right side which is intermittent lasting minutes, and is currently resolved. Chest pains happen at random or after coughing episodes. Patient denies nasal congestion, sore throat , ear ache, palpitations, abdominal pain, diarrhea, urinary changes, calf pain, edema. She states schizophrenia has been under control without medications. Patient has never been tested for asthma or COPD. She denies any known cardiac history. No recent travel or sick contact. Physical Exam (per Admitting): General Appearance: WD/WN, no apparent distress Head: normocephalic, atraumatic Eyes: normal inspection, sclerae normal ENT: hearing grossly normal, pharynx normal Neck: supple, trachea midline Respiratory/Chest: chest non-tender, no respiratory distress, no accessory muscle use, + decreased breath sounds, + wheezing (mod to severe expiratory wheezing), + pertinent finding (saturating mid 90s on 4 liters NC) Cardiovascular: no murmur, normal peripheral pulses, + tachycardia (regular rhythm, mild tachycardia rate 90s) Abdomen/GI: normal bowel sounds, non tender, soft Extremities/Musculoskelatal: normal inspection, no calf tenderness, normal capillary refill, no pedal edema Neurologic/Psych: alert, normal mood/affect, oriented x 3, + pertinent finding (grossly nonfocal) Skin: normal color, warm/dry Physical Exam (per Admitting): General Appearance: WD/WN, no apparent distress Head: normocephalic, atraumatic Eyes: normal inspection, sclerae normal ENT: hearing grossly normal, pharynx normal Neck: supple, trachea midline Respiratory/Chest: chest non-tender, no respiratory distress, no accessory muscle use, + decreased breath sounds, + wheezing (mod to severe expiratory wheezing), + pertinent finding (saturating mid 90s on 4 liters NC) Cardiovascular: no murmur, normal peripheral pulses, + tachycardia (regular rhythm, mild tachycardia rate 90s) Abdomen/GI: normal bowel sounds, non tender, soft Extremities/Musculoskelatal: normal inspection, no calf tenderness, normal capillary refill, no pedal edema Neurologic/Psych: alert, normal mood/affect, oriented x 3, + pertinent finding (grossly nonfocal) Skin: normal color, warm/dry Diagnostics Hospital Course PATIENT WAS ABSCONDING FROM ROOM ON Jul MORNING. HOSPITAL COURSE: SHORTNESS OF BREATH with HYPOXIA Probable exacerbation of underlying asthma, undiagnosed Was hypoxic in 80s on RA in ER even after neb treatments; now saturating mid 90s on 4L NC cxr no infiltarte ct chest shows - mucus plugging and possible infectious process hx of tobacco abuse and marijuana on Levaquin , nebs and steroids pulmonary sent for atypical titers improving will monitor CHEST PAIN negative D dimer EKG shows new T wave inversion in V2- V3, not present on prior EKG CE negative echo unremarkable asymptomatic today H/O SCHIZOPHRENIA Controlled as per patient Not on medication TOBACCO ABUSE Counselling for cessation DVT PROPHYLAXIS Lovenox SQ DISPOSITION To be determined Has not followed with primary care for > 1 year Has appointment with Dr. Maria on 08/10/16 Total time spent on discharge = 30MINUTES This includes examination of the patient, discharge planning, medication reconciliation, and communication with other providers. Discharge Instructions ABSCONDING FROM ROOM
== END 2016-08-08 09:45 | disposition left against medical advice (07) | DRG 203 ==
LOC: ENRESERVDT → ENRESERVTM → C.EDB 11:05 → C.2T 15:11
PROVIDERS: ADMIT Internal Medicine; ATTEND Internal Medicine
DX: J45.901 Unspecified asthma with (acute) exacerbation (principal); R07.9 Chest pain, unspecified; F12.20 Cannabis dependence, uncomplicated; F17.210 Nicotine dependence, cigarettes, uncomplicated; Z86.59 Personal history of other mental and behavioral disorders

== ENCOUNTER 2016-09-28 20:12 | Inpatient (IN) | payer OTHER ==
[~2016-09-28] VITALS: Ht 157.5 cm; Wt 57.7 kg
[~2016-09-28 20:12] MED LIST changes: +ASPI-390 PO
[2016-09-28] MEDS ORDERED: SODIUM CHLORIDE 0.9% 1000ML 1,000 ML IV STA (21:23)
[2016-09-28] MEDS ORDERED: METHYLPREDNISOLONE 125 MG VIAL IV STA (21:23)
[2016-09-28 21:28] LABS: BASO % 0.3 %; BASO ABS # 0.03 K/uL (0-0.2); COMPLETE YES; EOS % 17.6 %; HEMATOCRIT 45.8 % (37-47); IG% 0.2 %; LYMPH % 22.4 %; LYMPH ABS # 2.53 K/uL (1.2-3.4); MEAN CORPUSCULAR HEMOGLOBIN 31.7 pg (25-34); MEAN CORPUSCULAR HGB CONC 34.5 g/dl (32-36); MEAN PLATELET VOLUME 9.7 fL (7.4-10.4); MONO % 6.1 %; NEUT % 53.4 %; PLATELET COUNT 348 K/uL (130-400); RED BLOOD COUNT 4.98 M/uL (4.2-5.4); WHITE BLOOD COUNT 11.31 K/uL (4.8-10.8)
[2016-09-28] MEDS ORDERED: ALBUT/IPRATROP 3MG/0.5MG NEB 3 ML VIAL INH ONE (21:30)
[2016-09-28 21:38] LABS: ALT/SGPT 14 U/L (12-78); BLOOD UREA NITROGEN 8 mg/dl (7-18); BUN/CREATININE RATIO 13.9 (10-20); CALCIUM 9.7 mg/dl (8.5-10.1); CARBON DIOXIDE 30 mmol/L (21-32); CHLORIDE 101 mmol/L (98-107); CREATININE 0.59 mg/dl (0.60-1.20); GLUCOSE 86 mg/dl (70-99); POTASSIUM 4.2 mmol/L (3.5-5.1); SODIUM 139 mmol/L (136-145)
[2016-09-28 21:42] VITALS: PULSE 87; O2SAT 95
[2016-09-28 21:43] LABS: ALB/GLOB RATIO 0.8 (0.9-2); ALKALINE PHOSPHATASE 90 U/L (45-117); AST/SGOT 16 U/L (15-37); CKMB/CK RATIO 1.8 (0-3.0)
--- NOTE | 2016-09-28 21:52 | EMERGENCY ROOM VISIT NOTE ---
History Report prepared by Darryl: Sheila Seals Under the Supervision of: Dr. Jamal Sandoval M.D. First contact with patient: 21:08 Chief Complaint: RESPIRATORY PROBLEMS Stated Complaint: PROBLEMS BREATHING History of Present Illness The patient is a 31 year old female who presents to the Emergency Room with complaints of worsening respiratory problems that started one week ago. The patient has been using her inhaler more than twice every 6 hours. The patient denies chest. She states that she went to the walk-in clinic and they recommended coming into the ED for further evaluation. The patient states that she has been admitted for this problem in the past. Source of History: patient Onset: one week ago Position: chest Quality: other (respiratory problems) Timing: worsening Associated Symptoms: No chest pain Review of Systems See HPI for pertinent positives & negatives. A total of 10 systems reviewed and were otherwise negative. Past Medical & Surgical Medical Problems: (1) Asthma exacerbation (2) Cyclitis (3) Exacerbation of asthma (4) Hypoxia (5) Marijuana abuse (6) Meconium in amniotic fluid affecting management of mother (7) Normal (8) Pain, dental (9) (10) Schizophrenia (11) SOB (shortness of breath) (12) Tobacco abuse (13) Vaginal bleeding Surgical Problems: (1) No significant past surgical history Family History No significant family history Social History Smoking Status: Current Every Day Smoker Alcohol Use: none Drug Use: marijuana Marital Status: single Housing Status: lives with family Occupation Status: unemployed Current/Historical Medications Scheduled Albuterol Hfa (Ventolin Hfa), 2-4 PUFFS INH Q6H Allergies Coded Allergies: No Known Allergies (Verified , 09/28/16) Physical Exam Vital Signs Date Time Temp Pulse Resp B/P Pulse Ox O2 Delivery O2 Flow Rate FiO2 09/28/16 23:22 107 94 40 09/28/16 22:52 102 26 116/83 93 Nasal Cannula 4.0 09/28/16 21:59 93 24 107/78 99 Nebulizer 09/28/16 21:42 87 20 95 Nasal Cannula 2.0 09/28/16 21:31 89 09/28/16 21:20 92 Nasal Cannula 4.0 09/28/16 21:19 93 Nasal Cannula 4.0 09/28/16 21:18 92 Nasal Cannula 4.0 09/28/16 20:53 36.5 96 24 131/76 86 Room Air Physical Exam GENERAL: Patient is a healthy-appearing well-nourished female. Patient appears to be acutely uncomfortable and she is having trouble moving air. HEAD: Normocephalic atraumatic EYES: Ocular movements intact pupils equal and react to light OROPHARYNX mucous membranes are moist no exudates present no erythema or edema present NECK: Supple no nuchal rigidity CHEST: Good equal expansion LUNGS: Clear and equal to auscultation CARDIAC: Normal S1 and S2 ABDOMEN: Soft nontender no guarding BACK: No CVA tenderness EXTREMITIES: No pain upon palpation normal muscle strength in all groups no clubbing cyanosis or edema NEURO: Patient is following commands is answering questions appropriately. Alert and oriented x3 Cranial Nerves 2-12 grossly intact Medical Decision & Procedures ER Provider Diagnostic Interpretation: X-ray results as stated below per interpretation by me and the radiologist: CHEST ONE VIEW PORTABLE IMPRESSION: Hazy right lower lung opacity which could reflect pneumonia or atelectasis. Electronically signed by: Bart Pineda M.D. 09/28/2016 10:29 PM Dictated Date/Time: 09/28/2016 10:27 PM Laboratory Results Test 09/28/16 21:09 09/28/16 21:28 09/28/16 22:56 Immature Granulocyte % (Auto) 0.2 % White Blood Count 11.31 K/uL (4.8-10.8) Red Blood Count 4.98 M/uL (4.2-5.4) Hemoglobin 15.8 g/dL (12.0-16.0) Hematocrit 45.8 % (37-47) Mean Corpuscular Volume 92.0 fL (80-100) Mean Corpuscular Hemoglobin 31.7 pg (25-34) Mean Corpuscular Hemoglobin Concent 34.5 g/dl (32-36) Platelet Count 348 K/uL (130-400) Mean Platelet Volume 9.7 fL (7.4-10.4) Neutrophils (%) (Auto) 53.4 % Lymphocytes (%) (Auto) 22.4 % Monocytes (%) (Auto) 6.1 % Eosinophils (%) (Auto) 17.6 % Basophils (%) (Auto) 0.3 % Neutrophils # (Auto) 6.05 K/uL (1.4-6.5) Lymphocytes # (Auto) 2.53 K/uL (1.2-3.4) Monocytes # (Auto) 0.69 K/uL (0.11-0.59) Eosinophils # (Auto) 1.99 K/uL (0-0.5) Basophils # (Auto) 0.03 K/uL (0-0.2) Immature Granulocyte # (Auto) 0.02 K/uL (0.00-0.02) Total Bilirubin 0.6 mg/dl (0.2-1) Aspartate Amino Transf (AST/SGOT) 16 U/L (15-37) Alanine Aminotransferase (ALT/SGPT) 14 U/L (12-78) Alkaline Phosphatase 90 U/L (45-117) Total Creatine Kinase 118 U/L (26-192) Creatine Kinase MB 2.1 ng/ml (0.5-3.6) Creatine Kinase MB Ratio 1.8 (0-3.0) Troponin I < 0.015 ng/ml (0-0.045) Total Protein 8.7 gm/dl (6.4-8.2) Albumin 3.8 gm/dl (3.4-5.0) Globulin 4.9 gm/dl (2.5-4.0) Albumin/Globulin Ratio 0.8 (0.9-2) Influenza Type A (RT-PCR) Neg for Influ A (NEG) Influenza Type A Antigen Neg for Influ A (NEG) Influenza Type B Antigen Neg for Influ B (NEG) Influenza Type B (RT-PCR) Neg for Influ B (NEG) Arterial Blood pH 7.39 (7.35-7.45) Arterial Blood Partial Pressure CO2 48 mmHg (35-46) Arterial Blood Partial Pressure O2 61 mm/Hg (80-95) Arterial Blood HCO3 28 mmol/L (19-24) Arterial Blood Oxygen Saturation 89.3 % (90-95) Arterial Blood Base Excess 2.4 mEq/L (-9-1.8) Arterial Blood Gas Delivery 4 L Raji Test POS (POS) Labs reviewed by ED physician. Medications Administered Medications (Trade) Dose Ordered Sig/Alexandra Route Start Time Stop Time Status Last Admin Dose Admin Albuterol/ Ipratropium (Duoneb) 12 ml ONE ONCE INH 09/28/16 21:30 09/28/16 21:31 DC 09/28/16 21:41 12 ML Methylprednisolone Sodium Succinate 125 mg 125 mg NOW STAT IV 09/28/16 21:23 09/28/16 21:24 DC 09/28/16 21:28 125 MG Sodium Chloride (Nss 1000ml) 1,000 ml @ 999 mls/hr Q1H1M STAT IV 09/28/16 21:23 09/28/16 22:23 DC 09/28/16 21:28 999 MLS/HR Magnesium Sulfate (Magnesium Sulfate) 2 gm NOW STAT IV 09/28/16 22:33 09/28/16 22:34 DC 09/28/16 22:52 2 GM ECG Indication: SOB/dyspnea Rate (beats per minute): 86 Rhythm: normal sinus (with SA) Findings: no acute ischemic change, no ectopy ED Course 2119: Past medical records reviewed. The patient was evaluated in room A3. A complete history and physical examination was performed. 2122: Ordered Sodium Chloride 1000 ml @ 999 mls/hr IV, Solu-Medrol 125 mg IV 2129: Ordered DuoNeb 12 ml INH 2232: Ordered Magnesium Sulfate 2 gm IV 2300: Upon reexamination the patient is resting comfortably. I discussed results and treatment plan with the patient. She verbalizes agreement and understanding. The patient will be evaluated for further management. 5: I discussed the patient's case with Dr. Austin Krishnamurthy, he has agreed to evaluate the patient for further management and care. Medical Decision Differential diagnosis: Etiologies such as infections, reactive airway disease, pneumonia, pneumothorax , COPD, CHF, cardiac ischemia, pulmonary embolism, musculoskeletal, gastrointestinal, as well as others were entertained. This is a 31-year-old female who presents emergency department acutely short of breath. The patient is requiring at least 46 L of oxygen and is still hypoxic. Based on these findings an IV was established, patient given site Medrol, and hour-long breathing treatment, magnesium. I recommended that the patient be placed on BiPAP. I did discuss the case with the hospitalist service who agreed to admit the patient. Patient was in agreement with the treatment plan. Consults Time Called: 2304 Consulting Physician: Dr. Austin Krishnamurthy Returned Call: 5 I discussed the patient's case with Dr. Austin Krishnamurthy, he has agreed to evaluate the patient for further management and care. Impression Primary Impression: Asthma exacerbation Critical Care I have personally spent greater than 90 minutes of critical care time in the direct management of this patient. This includes bedside care, interpretation of diagnostic studies, and testing, discussion with consultants, patient, and family members, and other required patient management activities. This 90 minutes is in excess of all separately billable procedures. Scribe Attestation The scribe's documentation has been prepared under my direction and personally reviewed by me in its entirety. I confirm that the note above accurately reflects all work, treatment, procedures, and medical decision making performed by me. Departure Information Dispostion Being Evaluated By Hospitalist Referrals No Doctor, Assigned (PCP) Patient Instructions My [facility]
[2016-09-28] MEDS ORDERED: VNTHFA/IN INH (22:00)
--- NOTE | 2016-09-28 22:31 | DIAGNOSTIC IMAGING REPORT ---
CHEST ONE VIEW PORTABLE CLINICAL HISTORY: Shortness of breath. COMPARISON STUDY: Chest radiograph and chest CT August 06, 2016. FINDINGS: Lung volumes are normal. There is no pneumothorax or pleural effusion. There is hazy right basilar opacity. Left lung is clear. There is no evidence of pulmonary edema. IMPRESSION: Hazy right lower lung opacity which could reflect pneumonia or atelectasis. Electronically signed by: Bart Pineda M.D. 09/28/2016 10:29 PM Dictated Date/Time: 09/28/2016 10:27 PM
[2016-09-28] MEDS ORDERED: MAGNESIUM SULFATE 1GM / D5W 1 GM BAG IV STA (22:33)
[2016-09-28 23:06] LABS: ALLEN TEST POS (POS); ARTERIAL BLD GAS O2 SATURATION 89.3 % (90-95); ARTERIAL BLOOD GAS BASE EXCESS 2.4 mEq/L (-9-1.8); ARTERIAL BLOOD GAS HCO3 28 mmol/L (19-24); ARTERIAL BLOOD GAS PO2 61 mm/Hg (80-95); ARTERIAL BLOOD GAS pH 7.39 (7.35-7.45); O2 ADMINISTRATION 4 L
[2016-09-28 23:22] VITALS: PULSE 107; O2SAT 94
[2016-09-28] MEDS ORDERED: ACETAMINOPHEN 325 MG TAB PO PRN (23:30)
[2016-09-28] MEDS ORDERED: ALBUTEROL HFA 8 GM INHALER INH PRN (23:30)
[2016-09-28] MEDS ORDERED: ONDANSETRON INJ 2 MG/ML 2 ML VIAL IV PRN (23:30)
[2016-09-28 23:35] LABS: INFLUENZA A PCR Neg for Influ A (NEG); INFLUENZA B PCR Neg for Influ B (NEG)
[2016-09-29] VITALS (14 sets, daily range): BP systolic 83–120; BP diastolic 44–73; PULSE 81–112; TEMP 35.9–37; O2SAT 88–99; Ht 157.5 cm; Wt 57.7 kg
--- NOTE | 2016-09-29 00:20 | HISTORY & PHYSICAL EXAMINATION ---
DATE OF ADMISSION: 09/28/2016 PRIMARY CARE PHYSICIAN: Dr. Alcantar. CHIEF COMPLAINT: Increasing shortness of breath for the last 1 week. HISTORY OF PRESENT COMPLAINT: She is a 31-year-old female with significant past medical history including asthma moderately severe, depression, schizophrenia, and also anxiety and tobacco use disorder and history of alcohol abuse, apparently has been complaining of increasing shortness of breath for the last 1 week. Also, it happened last week that while she was coming out of the car in strong wind, she almost passed out. For the last day or 2, she has been zayas taking any of steps before getting severe shortness of breath. She does have cough productive of yellowish, white and greenish sputum. No fever or chills. No chest pain. She does have palpitation. No abdominal pain, nausea or vomiting, and no problem with urine and/or bowel habits. She does not have any leg swelling and she denies any numbness or tingling involving any of the extremities. Unfortunately, she continues to smoke, but for the last 2 or 3 days, she has been trying to cut it down. In the ER, she was very short of breath. She required 4 liters of oxygen to maintain saturation. Her labs were fairly unremarkable. Artery blood gas did show low pO2 of 61 and normal pH. X-ray did show hazy right lower lung opacity that may reflect pneumonia and/or atelectasis. From that point, she was admitted to telemetry unit. PAST MEDICAL HISTORY: Significant for depression/anxiety, schizophrenia, asthma, tobacco use disorder, and history of alcohol abuse. PAST SURGICAL HISTORY: Nothing significant except vaginal delivery. FAMILY HISTORY: Nothing reported. SOCIAL HISTORY: She is single. She lives with her boyfriend. She smokes about 1 pack per day for many years. She does not drink. She does not use any other drugs, but in the notes, used to use marijuana. ALLERGIES: NKDA. MEDICATIONS: She has been on Dulera 2 puffs twice daily, Ventolin inhaler 2 puffs 4 times daily as needed. REVIEW OF SYSTEMS: As in history of present complaints. PHYSICAL EXAMINATION: GENERAL: In the Emergency Room, she was having shortness of breath at rest. VITAL SIGNS: Temperature 36.5, pulse was 96, respirations 24, blood pressure 131/76, and saturation was 86% on room air, has gone up to 92% on 4 liters nasal cannula. HEENT: Unremarkable. NECK: Supple. No JVD, no bruit. CHEST: Decreased breath sounds all over with crackles at the bases. HEART: S1, S2 regular, no murmur. ABDOMEN: Soft, benign, nontender, no organomegaly. Bowel sounds present. EXTREMITIES: Negative for any edema. MUSCULOSKELETAL: Did not show any acute arthritis involving any joint. CENTRAL NERVOUS SYSTEM: She is alert, awake, oriented x3. LABORATORY DATA: Today white count was 11.31, H\T\H 15.8/45.8, platelet was 348. Blood gas: pH 7.39, pCO2 of 48, pO2 of 61, bicarbonate 28, delivery was 4 liters. Sodium 139, potassium 4.2, chloride 101, carbon dioxide 30, BUN 8, creatinine 0.59. LFTs unremarkable. Troponin unremarkable. Influenza A and B negative. Chest x-ray: Hazy right lower lung opacity which could reflect pneumonia and/or atelectasis. EKG was in sinus rhythm, rate of 86 per minute, nonspecific ST-T wave changes, normal axis. IMPRESSION AND PLAN: 1. Acute exacerbation of asthma, seems to be infective with acute respiratory failure with hypercarbia. She will be admitted to telemetry unit. Her saturation has been coming up with 4 liters nasal cannula. She will be given Solu-Medrol 125 mg q. 8 hourly, also antibiotic will be given as well for possible pneumonia. We will continue with nebulized bronchodilator and pulmonary consult tomorrow depending on her improvement. 2. Right lower lung opacity, likely secondary to pneumonia. We will start intravenous ceftriaxone and azithromycin while in the hospital. 3. Depression/anxiety. No acute episode at this time and does not take any medications. 4. Schizophrenia, not been taking any medications. 5. History of tobacco use disorder. We will put her on Nicotine patch and is advised to quit smoking. 6. Gastrointestinal prophylaxis with Maalox and Mylanta as needed. 7. Deep venous thrombosis prophylaxis with subcu heparin. 8. Code status. She will be full code. In my clinical judgment, the beneficiary meets criteria as per CMS for 2-midnight stay in the hospital. ABBY
[2016-09-29] MEDS ORDERED: CEFTRIAXONE SOD INJ 1 GM in DEXTROSE 5% ADD-VANTAGE 50ML 50 ML IV SCH (00:30)
[2016-09-29] MEDS ORDERED: AZITHROMYCIN IV 500 MG in DEXTROSE 5% 250ML 250 ML IV ONE (01:00)
[2016-09-29] MEDS: LEVALBUTEROL 0.63MG/3 ML NEB INH SCH ×3 (01:43→14:08)
[2016-09-29] MEDS: METHYLPREDNISOLONE IV 125 MG in SYRINGE 0 ML IV SCH ×2 (05:47→14:07)
[2016-09-29 06:40] LABS: MEAN CELL VOLUME 91.6 fL (80-100); MEAN CORPUSCULAR HEMOGLOBIN 31.6 pg (25-34); MEAN CORPUSCULAR HGB CONC 34.5 g/dl (32-36); MEAN PLATELET VOLUME 9.5 fL (7.4-10.4); PLATELET COUNT 318 K/uL (130-400); RED BLOOD COUNT 4.15 M/uL (4.2-5.4); WHITE BLOOD COUNT 6.79 K/uL (4.8-10.8)
[2016-09-29 07:27] LABS: BLOOD UREA NITROGEN 7 mg/dl (7-18); BUN/CREATININE RATIO 13.4 (10-20); CALCIUM 8.6 mg/dl (8.5-10.1); CARBON DIOXIDE 30 mmol/L (21-32); CHLORIDE 104 mmol/L (98-107); CREATININE 0.51 mg/dl (0.60-1.20); GLUCOSE 132 mg/dl (70-99); MAGNESIUM 2.5 mg/dl (1.8-2.4); PHOSPHORUS 2.6 mg/dl (2.5-4.9); POTASSIUM 4.4 mmol/L (3.5-5.1); SODIUM 140 mmol/L (136-145)
[2016-09-29] MEDS: DULERA - ORDER AWAITING ACTION SCH ×4 (08:00→23:52)
[2016-09-29] MEDS: ENOXAPARIN 40 MG/0.4 ML SYR SC SCH (09:00)
[2016-09-29] MEDS: NICOTINE 14 MG/24 HR TDSY TD SCH (09:00)
--- NOTE | 2016-09-29 10:28 | Progress Note ---
Internal Med Progress Note Date of Service: Sep 29, 2016. Provider Documentation: SUBJECTIVE: Patient is seen and examined at bedside. States her SOB is slightly better. Still has cough with productive sputum. Denies any chest pain. Currently on BiPAP OBJECTIVE: Vital Signs-as noted below Physical Exam: Vitals signs as noted above General Appearance:Moderately built and nourished, no apparent distress Head: normocephalic, Atraumatic Eyes: normal inspection, EOMI, PERRLA Neck: supple, Trachea midline Respiratory/Chest: Decreased, breath sounds, B/L rhonchi/expiratory wheezes Cardiovascular: S1, S2, No murmur Abdomen/GI:Soft, Non tender, Bowel sounds present Extremities/Musculoskelatal:normal inspection, no edema Neurologic/Psych:AAOX3, grossly no focal neurological deficits Skin: normal color, warm Lab data as noted below. ASSESSMENT & PLAN: Acute Hypoxic, Hypercapnic respiratory failure: Secondary to Acute exacerbation of asthma and CAP-Likely gram negative Continue to monitor in Tele Continue IV antibiotics, solumedrol, bronchodilators Oxygen support PRN Pulmonology consulted H/O Depression/anxiety: No acute episode currently Does not take any medications H/O Schizophrenia: Does not take any medications Tobacco use disorder: Nicotine patch and counselled to quit smoking. H/O Alcohol use: States last drink is 1 yr ago DVT Px: heparin SQ Code status: Full code PROCEDURES: CXR: Hazy right lower lung opacity which could reflect pneumonia or atelectasis. Vital Signs: Date Time Temp Pulse Resp B/P Pulse Ox O2 Delivery O2 Flow Rate FiO2 09/29/16 08:00 Nasal Cannula 4.0 09/29/16 07:25 88 16 98 BiPAP/CPAP 30 09/29/16 07:25 35.9 97 16 113/72 99 BiPAP 30 09/29/16 07:15 81 96 30 09/29/16 04:02 BiPAP 09/29/16 03:22 36.4 83 16 96/58 91 BiPAP 30 09/29/16 01:44 100 98 40 09/29/16 01:43 100 16 98 BiPAP/CPAP 40 09/29/16 00:19 105 93 40 09/29/16 00:00 36.8 112 35 120/73 88 Nasal Cannula 5.0 09/29/16 00:00 Nasal Cannula 5.0 09/28/16 23:36 107 20 125/78 97 BiPAP 09/28/16 23:22 107 94 40 09/28/16 22:52 102 26 116/83 93 Nasal Cannula 4.0 09/28/16 21:59 93 24 107/78 99 Nebulizer 09/28/16 21:42 87 20 95 Nasal Cannula 2.0 09/28/16 21:31 89 09/28/16 21:20 92 Nasal Cannula 4.0 09/28/16 21:19 93 Nasal Cannula 4.0 09/28/16 21:18 92 Nasal Cannula 4.0 09/28/16 20:53 36.5 96 24 131/76 86 Room Air Lab Results: Results Past 24 Hours Test 09/28/16 21:09 09/28/16 21:28 09/28/16 22:56 09/29/16 06:15 Range/Units White Blood Count 11.31 6.79 4.8-10.8 K/uL Red Blood Count 4.98 4.15 4.2-5.4 M/uL Hemoglobin 15.8 13.1 12.0-16.0 g/dL Hematocrit 45.8 38.0 37-47 % Mean Corpuscular Volume 92.0 91.6 80-100 fL Mean Corpuscular Hemoglobin 31.7 31.6 25-34 pg Mean Corpuscular Hemoglobin Concent 34.5 34.5 32-36 g/dl Platelet Count 348 318 130-400 K/uL Mean Platelet Volume 9.7 9.5 7.4-10.4 fL Neutrophils (%) (Auto) 53.4 % Lymphocytes (%) (Auto) 22.4 % Monocytes (%) (Auto) 6.1 % Eosinophils (%) (Auto) 17.6 % Basophils (%) (Auto) 0.3 % Neutrophils # (Auto) 6.05 1.4-6.5 K/uL Lymphocytes # (Auto) 2.53 1.2-3.4 K/uL Monocytes # (Auto) 0.69 0.11-0.59 K/uL Eosinophils # (Auto) 1.99 0-0.5 K/uL Basophils # (Auto) 0.03 0-0.2 K/uL RDW Standard Deviation 43.8 43.1 36.4-46.3 fL RDW Coefficient of Variation 13.0 12.8 11.5-14.5 % Immature Granulocyte % (Auto) 0.2 % Immature Granulocyte # (Auto) 0.02 0.00-0.02 K/uL Sodium Level 139 140 136-145 mmol/L Potassium Level 4.2 4.4 3.5-5.1 mmol/L Chloride Level 101 104 98-107 mmol/L Carbon Dioxide Level 30 30 21-32 mmol/L Anion Gap 8.0 6.0 3-11 mmol/L Blood Urea Nitrogen 8 7 7-18 mg/dl Creatinine 0.59 0.51 0.60-1.20 mg/dl Est Creatinine Clear Calc Drug Dose 111.3 128.8 ml/min Estimated GFR () 143.6 > 150.0 Estimated GFR (Non- 123.9 129.9 BUN/Creatinine Ratio 13.9 13.4 10-20 Random Glucose 86 132 70-99 mg/dl Calcium Level 9.7 8.6 8.5-10.1 mg/dl Total Bilirubin 0.6 0.2-1 mg/dl Aspartate Amino Transf (AST/SGOT) 16 15-37 U/L Alanine Aminotransferase (ALT/SGPT) 14 12-78 U/L Alkaline Phosphatase 90 45-117 U/L Total Creatine Kinase 118 26-192 U/L Creatine Kinase MB 2.1 0.5-3.6 ng/ml Creatine Kinase MB Ratio 1.8 0-3.0 Troponin I < 0.015 0-0.045 ng/ml Total Protein 8.7 6.4-8.2 gm/dl Albumin 3.8 3.4-5.0 gm/dl Globulin 4.9 2.5-4.0 gm/dl Albumin/Globulin Ratio 0.8 0.9-2 Influenza Type A (RT-PCR) Neg for Influ A NEG Influenza Type A Antigen Neg for Influ A NEG Influenza Type B Antigen Neg for Influ B NEG Influenza Type B (RT-PCR) Neg for Influ B NEG Arterial Blood pH 7.39 7.35-7.45 Arterial Blood Partial Pressure CO2 48 35-46 mmHg Arterial Blood Partial Pressure O2 61 80-95 mm/Hg Arterial Blood HCO3 28 19-24 mmol/L Arterial Blood Oxygen Saturation 89.3 90-95 % Arterial Blood Base Excess 2.4 -9-1.8 mEq/L Arterial Blood Gas Delivery 4 L Raji Test POS POS Phosphorus Level 2.6 2.5-4.9 mg/dl Magnesium Level 2.5 1.8-2.4 mg/dl
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
[2016-09-29] MEDS ORDERED: LEVALBUTEROL 1.25MG/0.5ML NEB INH PRN (17:30)
[2016-09-29 18:40] LABS: PREG INTERNAL NEGATIVE QC NEG CLEAR BACKGROUND; PREG INTERNAL POSITIVE QC POS CONTROL LINE
[2016-09-29] MEDS: IPRATROPIUM BROMIDE NEB SOLN 0.02% 2.5 ML VIAL INH SCH (19:30)
[2016-09-29] MEDS: LEVALBUTEROL 1.25MG/0.5ML NEB INH SCH (19:31)
[2016-09-29] MEDS ORDERED: LEVALBUTEROL/IPRATROPIUM NEB INH SCH (21:00)
[2016-09-29] MEDS ORDERED: METHYLPREDNISOLONE IV 60 MG in SYRINGE 0 ML IV SCH (22:00)
[2016-09-29] MEDS: LORAZEPAM 2 MG/ML 1 ML VIAL IV PRN (22:15)
[2016-09-29] MEDS: METHYLPREDNISOLONE IV 60 MG in SYRINGE 0 ML IV SCH (22:15)
[2016-09-29] MEDS: CEFTRIAXONE SOD INJ 1 GM in DEXTROSE 5% ADD-VANTAGE 50ML 50 ML IV SCH (23:55)
[2016-09-30] VITALS (7 sets, daily range): BP systolic 100–111; BP diastolic 63–70; PULSE 60–101; TEMP 36.6–36.8; O2SAT 91–98
[2016-09-30] MEDS: METHYLPREDNISOLONE IV 60 MG in SYRINGE 0 ML IV SCH ×3 (06:01→22:13)
[2016-09-30] MEDS: AZITHROMYCIN IV 500 MG in DEXTROSE 5% 250ML 250 ML IV SCH (06:01)
[2016-09-30 06:45] LABS: BUN/CREATININE RATIO 23.6 (10-20); CALCIUM 8.8 mg/dl (8.5-10.1); CARBON DIOXIDE 27 mmol/L (21-32); CHLORIDE 104 mmol/L (98-107); GLUCOSE 122 mg/dl (70-99); POTASSIUM 4.6 mmol/L (3.5-5.1); SODIUM 139 mmol/L (136-145)
[2016-09-30 07:19] LABS: BLOOD UREA NITROGEN 12 mg/dl (7-18)
[2016-09-30] MEDS: LEVALBUTEROL 1.25MG/0.5ML NEB INH SCH ×3 (07:35→19:21)
[2016-09-30] MEDS: IPRATROPIUM BROMIDE NEB SOLN 0.02% 2.5 ML VIAL INH SCH ×3 (07:35→19:21)
[2016-09-30] MEDS: DULERA - ORDER AWAITING ACTION SCH ×3 (07:56→23:05)
[2016-09-30] MEDS: ENOXAPARIN 40 MG/0.4 ML SYR SC SCH (08:10)
[2016-09-30] MEDS: NICOTINE 14 MG/24 HR TDSY TD SCH (08:10)
--- NOTE | 2016-09-30 16:38 | Progress Note ---
Internal Med Progress Note Date of Service: Sep 30, 2016. Provider Documentation: SUBJECTIVE: Patient is seen and examined at bedside. Patient reports SOB and cough mildly improved. Denies any chest pain. On BiPAP. Offers no other complaints. OBJECTIVE: Vital Signs-as noted below Physical Exam: Vitals signs as noted above General Appearance:Moderately built and nourished, no apparent distress Head: normocephalic, Atraumatic Eyes: normal inspection, EOMI, PERRLA Neck: supple, Trachea midline Respiratory/Chest: Decreased, breath sounds, B/L expiratory wheezes improving Cardiovascular: S1, S2, No murmur Abdomen/GI:Soft, Non tender, Bowel sounds present Extremities/Musculoskelatal:normal inspection, no edema Neurologic/Psych:AAOX3, grossly no focal neurological deficits Skin: normal color, warm Lab data as noted below. ASSESSMENT & PLAN: Acute Hypoxic, Hypercapnic respiratory failure: Secondary to Acute exacerbation of asthma and CAP-Likely gram negative Continue to monitor in Tele Continue IV antibiotics, solumedrol, bronchodilators Continue Oxygen/BIPAP support PRN Appreciate Pulmonology input Ig E levels: pending HIV screen: Negative H/O Depression/anxiety: No acute episode currently Does not take any medications H/O Schizophrenia: Does not take any medications Tobacco use disorder: Nicotine patch and counselled to quit smoking. H/O Alcohol use: States last drink is 1 yr ago DVT Px: heparin SQ Code status: Full code PROCEDURES: CXR: Hazy right lower lung opacity which could reflect pneumonia or atelectasis. Vital Signs: Date Time Temp Pulse Resp B/P Pulse Ox O2 Delivery O2 Flow Rate FiO2 09/30/16 14:53 88 16 97 BiPAP/CPAP 30 09/30/16 12:00 Room Air 09/30/16 10:38 36.6 101 20 105/70 91 Room Air 09/30/16 08:00 Room Air 09/30/16 07:46 68 16 97 BiPAP/CPAP 30 09/30/16 07:21 36.6 72 20 100/63 98 BiPAP 09/30/16 04:02 Nasal Cannula 4.0 09/30/16 03:34 36.8 60 12 111/69 95 BiPAP 30 09/30/16 00:02 Nasal Cannula 4.0 09/29/16 22:51 37.0 85 15 97/58 94 BiPAP 30 09/29/16 22:25 90 94 30 09/29/16 20:04 Nasal Cannula 4.0 09/29/16 20:02 36.8 94 22 103/62 91 Nasal Cannula 4.0 09/29/16 19:31 97 18 97 Nasal Cannula 4.0 Lab Results: Results Past 24 Hours Test 09/29/16 17:40 09/30/16 06:00 Range/Units Human Chorionic Gonadotropin, Qual NEG NEG HIV (1&2) Ab and P24 Ag, 4th Gener NEG NEG Sodium Level 139 136-145 mmol/L Potassium Level 4.6 3.5-5.1 mmol/L Chloride Level 104 98-107 mmol/L Carbon Dioxide Level 27 21-32 mmol/L Anion Gap 8.0 3-11 mmol/L Blood Urea Nitrogen 12 7-18 mg/dl Creatinine 0.50 0.60-1.20 mg/dl Est Creatinine Clear Calc Drug Dose 131.3 ml/min Estimated GFR () > 150.0 Estimated GFR (Non- 130.8 BUN/Creatinine Ratio 23.6 10-20 Random Glucose 122 70-99 mg/dl Calcium Level 8.8 8.5-10.1 mg/dl
[2016-09-30] MEDS: LORAZEPAM 2 MG/ML 1 ML VIAL IV PRN (22:14)
[2016-09-30] MEDS: CEFTRIAXONE SOD INJ 1 GM in DEXTROSE 5% ADD-VANTAGE 50ML 50 ML IV SCH (23:34)
[2016-10-01] VITALS (13 sets, daily range): BP systolic 91–115; BP diastolic 47–70; PULSE 61–90; TEMP 36.1–37; O2SAT 92–99
[2016-10-01] MEDS: LEVALBUTEROL 1.25MG/0.5ML NEB INH SCH ×4 (02:09→19:50)
[2016-10-01] MEDS: IPRATROPIUM BROMIDE NEB SOLN 0.02% 2.5 ML VIAL INH SCH ×4 (02:09→19:50)
[2016-10-01] MEDS: METHYLPREDNISOLONE IV 60 MG in SYRINGE 0 ML IV SCH ×2 (05:51→14:24)
[2016-10-01 07:10] LABS: HEMATOCRIT 33.6 % (37-47); MEAN CELL VOLUME 92.3 fL (80-100); MEAN CORPUSCULAR HEMOGLOBIN 30.8 pg (25-34); MEAN CORPUSCULAR HGB CONC 33.3 g/dl (32-36); MEAN PLATELET VOLUME 9.6 fL (7.4-10.4); PLATELET COUNT 282 K/uL (130-400); RED BLOOD COUNT 3.64 M/uL (4.2-5.4); WHITE BLOOD COUNT 9.05 K/uL (4.8-10.8)
[2016-10-01] MEDS: AZITHROMYCIN IV 500 MG in DEXTROSE 5% 250ML 250 ML IV SCH (07:32)
[2016-10-01 07:46] LABS: BLOOD UREA NITROGEN 13 mg/dl (7-18); BUN/CREATININE RATIO 26.5 (10-20); CALCIUM 8.7 mg/dl (8.5-10.1); CARBON DIOXIDE 29 mmol/L (21-32); CHLORIDE 105 mmol/L (98-107); CREATININE 0.48 mg/dl (0.60-1.20); GLUCOSE 112 mg/dl (70-99); POTASSIUM 4.2 mmol/L (3.5-5.1); SODIUM 139 mmol/L (136-145)
[2016-10-01] MEDS: DULERA - ORDER AWAITING ACTION SCH ×2 (08:00→16:00)
[2016-10-01] MEDS: ENOXAPARIN 40 MG/0.4 ML SYR SC SCH (08:53)
[2016-10-01] MEDS: NICOTINE 14 MG/24 HR TDSY TD SCH (08:53)
[2016-10-01 09:02] LABS: ARTERIAL BLOOD GAS BASE EXCESS 4.3 mEq/L (-9-1.8); ARTERIAL BLOOD GAS HCO3 28 mmol/L (19-24); ARTERIAL BLOOD GAS PO2 69 mm/Hg (80-95); ARTERIAL BLOOD GAS pH 7.48 (7.35-7.45)
--- NOTE | 2016-10-01 09:09 | Pulmonology Progress Note ---
Pulmonary Progress Note Date of Service Oct 01, 2016. Attending Dr. Weber Subjective Patient continues on BiPAP but notes decreased respiratory effort/less chest tightness. Denies: Fever, chills, productive cough, pleurisy Objective Patient was sleeping when I walked in on BiPAP notably comfortable not using accessory muscles. During our conversation she showed no signs of tachypnea, accessory muscle use and was able to answer questions easily. Vital signs: Stable on BiPAP with 4 L nasal cannula Respiratory: Minimal expiratory wheezing at this time Cardiac: S1-S2 regular rate and rhythm no murmurs rubs or gallops appreciated Skin: No tissue breakdown Abdomen: Positive bowel sounds soft nontender Medications: #1 azithromycin #2 ceftriaxone #3 methylprednisolone 60 mg IV every 8 #4 Atrovent/Xopenex nebulizer every 6 hours #5 Xopenex nebulizer every 3 hours when necessary shortness of breath #6 nicotine patch Labs: Number 1H CG: Negative Anti-IgE antibody: Pending Eosinophil total # on admission elevated at 1.99 ABG: (10/01/16) 7.48/39/69/28--room air Assessment & Plan 31-year-old female admitted for asthma exacerbation with hypoxemia on ABG: #1 acute asthma exacerbation: Her ABG was on room air/off BiPAP. This time months monitor the patient off BiPAP for the next 24 hours and can you her current medication regimen. At this time months introduce Symbicort 160/4.5. #2 chronic asthma control. Patient will need chronic asthma control medications such as Symbicort and rescue inhaler. At the time of discharge also need steroid taper and proper follow-up. #3 hypoxia: Patient did have abnormal CAT scan noted in July 2016. At this time will repeat noncontrast CT of the chest for further evaluation of previous groundglass nodules. Data Medications: Current Inpatient Medications Medications (Trade) Dose Ordered Sig/Alexandra Route Start Time Stop Time Status Last Admin Dose Admin Enoxaparin Sodium (Lovenox Inj) 40 mg QAM SC 09/29/16 09:00 10/29/16 08:59 Acetaminophen (Tylenol Tab) 650 mg Q4H PRN PO 09/28/16 23:30 10/28/16 23:29 Ondansetron HCl (Zofran Inj) 4 mg Q6H PRN IV 09/28/16 23:30 10/28/16 23:29 Miscellaneous Information (Order Awaiting Action) 1 ea QS N/A 09/29/16 00:00 10/29/16 00:00 Nicotine (Nicoderm Cq 14MG Patch) 1 patch QAM TD 09/29/16 09:00 10/29/16 08:59 Miscellaneous 1 ea 1 ea HS N/A 09/29/16 21:00 10/29/16 20:59 Ceftriaxone Sodium 1 gm/ Dextrose 50 ml @ 100 mls/hr Q24H IV 09/30/16 00:00 10/05/16 00:29 09/30/16 23:34 100 MLS/HR Azithromycin/ Dextrose (Zithromax IV/D5 250ml) 255 ml @ 125 mls/hr DAILY@0700 IV 09/30/16 06:00 10/05/16 09:03 10/01/16 07:32 125 MLS/HR Lorazepam 0.25 mg 0.25 mg Q6H PRN IV 09/29/16 02:15 10/29/16 02:14 09/30/16 22:14 0.25 MG Methylprednisolone Sodium Succinate/ Syringe (Solu-Medrol IV/ Syringe) 0.96 ml @ 1.5 mls/min Q8 IV 09/29/16 22:00 10/29/16 21:59 10/01/16 05:51 1.5 MLS/MIN Levalbuterol (Xopenex 1.25MG/ 0.5ML Neb) 1.25 mg Q3R PRN INH 09/29/16 17:30 10/29/16 17:29 Ipratropium [place] (Atrovent 0.02% 0.5MG/2.5ML Neb) 0.5 mg Q6R INH 09/29/16 21:00 10/29/16 20:59 10/01/16 07:17 0.5 MG Levalbuterol (Xopenex 1.25MG/ 0.5ML Neb) 1.25 mg Q6R INH 09/29/16 21:00 10/29/16 20:59 10/01/16 07:17 1.25 MG I & O: 24-Hour Column 10/01/16 07:59 Intake Total 475 ml Balance 475 ml Vital Signs: Date Time Temp Pulse Resp B/P Pulse Ox O2 Delivery O2 Flow Rate FiO2 10/01/16 08:00 BiPAP 10/01/16 07:18 36.1 61 20 108/65 99 BiPAP 10/01/16 07:17 88 17 99 BiPAP/CPAP 30 10/01/16 04:03 37.0 68 16 91/47 97 BiPAP 30 10/01/16 04:00 Nasal Cannula 4.0 BiPAP 10/01/16 02:11 84 97 30 10/01/16 02:09 84 13 97 BiPAP/CPAP 30 10/01/16 00:33 81 96 30 10/01/16 00:20 36.8 69 14 102/62 96 BiPAP 30 10/01/16 00:00 Nasal Cannula 4.0 BiPAP 09/30/16 20:04 Nasal Cannula 4.0 09/30/16 19:30 36.7 79 16 109/67 96 Nasal Cannula 4.0 09/30/16 19:22 82 16 98 Nasal Cannula 4.0 09/30/16 16:00 Nasal Cannula 4.0 30 BiPAP 09/30/16 14:53 88 16 97 BiPAP/CPAP 30 09/30/16 12:00 Room Air 09/30/16 10:38 36.6 101 20 105/70 91 Room Air Laboratory Results: Last 24 Hours Test 10/01/16 06:50 10/01/16 08:50 White Blood Count 9.05 K/uL Red Blood Count 3.64 M/uL Hemoglobin 11.2 g/dL Hematocrit 33.6 % Mean Corpuscular Volume 92.3 fL Mean Corpuscular Hemoglobin 30.8 pg Mean Corpuscular Hemoglobin Concent 33.3 g/dl RDW Standard Deviation 44.8 fL RDW Coefficient of Variation 13.3 % Platelet Count 282 K/uL Mean Platelet Volume 9.6 fL Sodium Level 139 mmol/L Potassium Level 4.2 mmol/L Chloride Level 105 mmol/L Carbon Dioxide Level 29 mmol/L Anion Gap 5.0 mmol/L Blood Urea Nitrogen 13 mg/dl Creatinine 0.48 mg/dl Est Creatinine Clear Calc Drug Dose 136.8 ml/min Estimated GFR () > 150.0 Estimated GFR (Non- 132.6 BUN/Creatinine Ratio 26.5 Random Glucose 112 mg/dl Calcium Level 8.7 mg/dl
--- NOTE | 2016-10-01 09:15 | Progress Note ---
Internal Med Progress Note Date of Service: Oct 01, 2016. Provider Documentation: SUBJECTIVE: Patient is seen and examined at bedside. Patient reports her cough is much improved. Denies any SOB, chest pain. Seemed to be comfortable off BIPAP. ABG pending from this morning. Offers no other complaints. Eager to get discharged. OBJECTIVE: Vital Signs-as noted below Physical Exam: Vitals signs as noted above General Appearance:Moderately built and nourished, no apparent distress Head: normocephalic, Atraumatic Eyes: normal inspection, EOMI, PERRLA Neck: supple, Trachea midline Respiratory/Chest: B/L air entry, mild expiratory wheezes Cardiovascular: S1, S2, No murmur Abdomen/GI:Soft, Non tender, Bowel sounds present Extremities/Musculoskelatal:normal inspection, no edema Neurologic/Psych:AAOX3, grossly no focal neurological deficits Skin: normal color, warm Lab data as noted below. ASSESSMENT & PLAN: Acute Hypoxic, Hypercapnic respiratory failure: Secondary to Acute exacerbation of asthma and CAP-Likely gram negative Continue to monitor in Tele Continue IV antibiotics, solumedrol, bronchodilators Currently off BIPAP ABG:pending Oxygen support PRN Plan to taper steroids if ABG better Appreciate Pulmonology input Ig E levels: pending HIV screen: Negative Noted drop in Hb, denies any bleeding. continue to monitor, check FOBT H/O Depression/anxiety: No acute episode currently Does not take any medications H/O Schizophrenia: Does not take any medications Tobacco use disorder: Nicotine patch and counselled to quit smoking. Refuses to be prescribed on Nicotine patch upon discharge States she is ready to quit smoking H/O Alcohol use: States last drink is 1 yr ago DVT Px: heparin SQ Code status: Full code PROCEDURES: CXR: Hazy right lower lung opacity which could reflect pneumonia or atelectasis. Vital Signs: Date Time Temp Pulse Resp B/P Pulse Ox O2 Delivery O2 Flow Rate FiO2 10/01/16 08:00 BiPAP 10/01/16 07:18 36.1 61 20 108/65 99 BiPAP 10/01/16 07:17 88 17 99 BiPAP/CPAP 30 10/01/16 04:03 37.0 68 16 91/47 97 BiPAP 30 10/01/16 04:00 Nasal Cannula 4.0 BiPAP 10/01/16 02:11 84 97 30 10/01/16 02:09 84 13 97 BiPAP/CPAP 30 10/01/16 00:33 81 96 30 10/01/16 00:20 36.8 69 14 102/62 96 BiPAP 30 10/01/16 00:00 Nasal Cannula 4.0 BiPAP 09/30/16 20:04 Nasal Cannula 4.0 09/30/16 19:30 36.7 79 16 109/67 96 Nasal Cannula 4.0 09/30/16 19:22 82 16 98 Nasal Cannula 4.0 09/30/16 16:00 Nasal Cannula 4.0 30 BiPAP 09/30/16 14:53 88 16 97 BiPAP/CPAP 30 09/30/16 12:00 Room Air 09/30/16 10:38 36.6 101 20 105/70 91 Room Air Lab Results: Results Past 24 Hours Test 10/01/16 06:50 10/01/16 08:50 Range/Units White Blood Count 9.05 4.8-10.8 K/uL Red Blood Count 3.64 4.2-5.4 M/uL Hemoglobin 11.2 12.0-16.0 g/dL Hematocrit 33.6 37-47 % Mean Corpuscular Volume 92.3 80-100 fL Mean Corpuscular Hemoglobin 30.8 25-34 pg Mean Corpuscular Hemoglobin Concent 33.3 32-36 g/dl RDW Standard Deviation 44.8 36.4-46.3 fL RDW Coefficient of Variation 13.3 11.5-14.5 % Platelet Count 282 130-400 K/uL Mean Platelet Volume 9.6 7.4-10.4 fL Sodium Level 139 136-145 mmol/L Potassium Level 4.2 3.5-5.1 mmol/L Chloride Level 105 98-107 mmol/L Carbon Dioxide Level 29 21-32 mmol/L Anion Gap 5.0 3-11 mmol/L Blood Urea Nitrogen 13 7-18 mg/dl Creatinine 0.48 0.60-1.20 mg/dl Est Creatinine Clear Calc Drug Dose 136.8 ml/min Estimated GFR () > 150.0 Estimated GFR (Non- 132.6 BUN/Creatinine Ratio 26.5 10-20 Random Glucose 112 70-99 mg/dl Calcium Level 8.7 8.5-10.1 mg/dl
[2016-10-01 10:14] LABS: ALLEN TEST POSITIVE (POS); O2 ADMINISTRATION ROOM AIR
--- NOTE | 2016-10-01 16:47 | DIAGNOSTIC IMAGING REPORT ---
CHEST CT WITHOUT CONTRAST CT DOSE: 211.27 mGy.cm HISTORY: hypoxia with previous groundglass nodules TECHNIQUE: Multiaxial CT images of the chest were performed without contrast. COMPARISON: Chest CT 08/06/2016. FINDINGS: No pleural effusions. No pneumothorax. Scattered multifocal groundglass airspace opacities, mild bronchial wall thickening, and scattered areas of mucous plugging within the bronchi are again noted but have improved. No fractures within the visualized osseous structures. No mediastinal or hilar lymphadenopathy. Hypodense area within the liver adjacent to the falciform ligament favors focal fat. The unenhanced spleen and adrenal glands appear unremarkable. Normal caliber thoracic area. IMPRESSION: Slight improvement in the multifocal groundglass opacities throughout the lungs with mild bronchial wall thickening and mild multifocal mucous plugging of the bronchi. This favors an atypical infectious process. Bronchoscopy suggested for further evaluation. Electronically signed by: Cristian Clark M.D. 10/01/2016 4:46 PM Dictated Date/Time: 10/01/2016 4:41 PM
--- NOTE | 2016-10-01 20:26 | Progress Note ---
Internal Med Progress Note Date of Service: Oct 01, 2016. Provider Documentation: I was in the ER about to do an admission when I was notified by px RN of px intent to leave hospital AMA. PX not willing to wait for physician to discuss grievances and detail consequences of leaving AMA. Will update AM provider. Dr. Ansari to accomplish discharge summary. . Vital Signs: Date Time Temp Pulse Resp B/P Pulse Ox O2 Delivery O2 Flow Rate FiO2 10/01/16 19:54 36.9 67 20 111/64 92 Room Air 10/01/16 19:50 89 16 95 Room Air 10/01/16 16:00 92 Room Air 10/01/16 15:54 36.9 90 20 115/70 92 Room Air 10/01/16 14:47 88 17 99 BiPAP/CPAP 30 10/01/16 12:00 BiPAP 10/01/16 11:27 36.8 90 20 110/64 92 Room Air Lab Results: Results Past 24 Hours Test 10/01/16 08:50 Range/Units Arterial Blood pH 7.48 7.35-7.45 Arterial Blood Partial Pressure CO2 39 35-46 mmHg Arterial Blood Partial Pressure O2 69 80-95 mm/Hg Arterial Blood HCO3 28 19-24 mmol/L Arterial Blood Oxygen Saturation 94.0 90-95 % Arterial Blood Base Excess 4.3 -9-1.8 mEq/L Arterial Blood Gas Delivery ROOM AIR Raji Test POSITIVE POS
[2016-10-02] MEDS ORDERED: AZITHROMYCIN 250 MG / D5W 250 ML IV SCH ×2 (07:00)
--- NOTE | 2016-10-02 07:26 | Discharge Summary ---
Discharge Summary Date of Service Oct 02, 2016. Discharge Summary Admission Date: Sep 28, 2016 at 23:30 Discharge Disposition: Home (Left AMA) Principal Diagnosis: Acute Asthma Exacerbation, CAP Procedures: CT chest: Slight improvement in the multifocal groundglass opacities throughout the lungs with mild bronchial wall thickening and mild multifocal mucous plugging of the bronchi. This favors an atypical infectious process. Bronchoscopy suggested for further evaluation. Consultations: Pulmonology Pending Studies/Follow-Up: Patient left AMA Admission Information HPI (per Admitting provider): CHIEF COMPLAINT: Increasing shortness of breath for the last 1 week. HISTORY OF PRESENT COMPLAINT: She is a 31-year-old female with significant past medical history including asthma moderately severe, depression, schizophrenia, and also anxiety and tobacco use disorder and history of alcohol abuse, apparently has been complaining of increasing shortness of breath for the last 1 week. Also, it happened last week that while she was coming out of the car in strong wind, she almost passed out. For the last day or 2, she has been zayas taking any of steps before getting severe shortness of breath. She does have cough productive of yellowish, white and greenish sputum. No fever or chills. No chest pain. She does have palpitation. No abdominal pain, nausea or vomiting, and no problem with urine and/or bowel habits. She does not have any leg swelling and she denies any numbness or tingling involving any of the extremities. Unfortunately, she continues to smoke, but for the last 2 or 3 days, she has been trying to cut it down. In the ER, she was very short of breath. She required 4 liters of oxygen to maintain saturation. Her labs were fairly unremarkable. Artery blood gas did show low pO2 of 61 and normal pH. X-ray did show hazy right lower lung opacity that may reflect pneumonia and/or atelectasis. From that point, she was admitted to telemetry unit. Physical Exam (per Admitting): PHYSICAL EXAMINATION: GENERAL: In the Emergency Room, she was having shortness of breath at rest. VITAL SIGNS: Temperature 36.5, pulse was 96, respirations 24, blood pressure 131/76, and saturation was 86% on room air, has gone up to 92% on 4 liters nasal cannula. HEENT: Unremarkable. NECK: Supple. No JVD, no bruit. CHEST: Decreased breath sounds all over with crackles at the bases. HEART: S1, S2 regular, no murmur. ABDOMEN: Soft, benign, nontender, no organomegaly. Bowel sounds present. EXTREMITIES: Negative for any edema. MUSCULOSKELETAL: Did not show any acute arthritis involving any joint. CENTRAL NERVOUS SYSTEM: She is alert, awake, oriented x3. Hospital Course PATIENT LEFT AMA OVERNIGHT DESPITE BEING COUNSELLED BY NIGHT HOSPITALIST Acute Hypoxic, Hypercapnic respiratory failure: Secondary to Acute exacerbation of asthma and CAP-Likely gram negative Continue to monitor in Tele Continue IV antibiotics, solumedrol, bronchodilators Currently off BIPAP ABG:pending Oxygen support PRN Plan to taper steroids if ABG better Appreciate Pulmonology input Ig E levels: pending HIV screen: Negative Noted drop in Hb, denies any bleeding. continue to monitor, check FOBT H/O Depression/anxiety: No acute episode currently Does not take any medications H/O Schizophrenia: Does not take any medications Tobacco use disorder: Nicotine patch and counselled to quit smoking. Refuses to be prescribed on Nicotine patch upon discharge States she is ready to quit smoking H/O Alcohol use: States last drink is 1 yr ago DVT Px: heparin SQ Code status: Full code PROCEDURES: CXR: Hazy right lower lung opacity which could reflect pneumonia or atelectasis. Total time spent on discharge = This includes examination of the patient, discharge planning, medication reconciliation, and communication with other providers. Discharge Instructions Patient left AMA overnight despite counselling
== END 2016-10-01 21:04 | disposition left against medical advice (07) | DRG 193 ==
LOC: ENRESERVTM → ENRESERVDT → C.EDB 20:12 → EEVIPCON 23:30 → C.2T 23:30
PROVIDERS: ADMIT Internal Medicine; ATTEND Internal Medicine
DX: J18.9 Pneumonia, unspecified organism (principal); J96.02 Acute respiratory failure with hypercapnia; J96.01 Acute respiratory failure with hypoxia; J45.901 Unspecified asthma with (acute) exacerbation; F11.90 Opioid use, unspecified, uncomplicated; F17.210 Nicotine dependence, cigarettes, uncomplicated; Z53.21 Procedure and treatment not carried out due to patient leaving prior to being seen by health care provider; Z79.51 Long term (current) use of inhaled steroids; Z79.899 Other long term (current) drug therapy; Z91.19 Patient's noncompliance with other medical treatment and regimen

== ENCOUNTER 2017-01-31 23:57 | Emergency (ER) | payer OTHER ==
[~2017-01-31] VITALS: Ht 157.5 cm; Wt 60.2 kg
[~2017-01-31 23:57] MED LIST changes: -ALBU1AER9 INH; -ASPI-390 PO; +VNTHFA/IN INH
[2017-02-01 00:10] VITALS: TEMP 36.7; Ht 157.5 cm; Wt 60.2 kg
[2017-02-01] MEDS ORDERED: ONDA8TAB6 PO (00:46)
[2017-02-01] MEDS ORDERED: MOME100A INH (00:46)
[2017-02-01] MEDS ORDERED: PRENTAB26 PO (00:46)
--- NOTE | 2017-02-01 03:17 | EMERGENCY ROOM VISIT NOTE ---
History First contact with patient: 00:15 Chief Complaint: DETOX REQUEST Stated Complaint: REQUESTING DETOX Nursing Triage Summary: "here for detox of Opiates and Heroin. I had a big weekend". Reports everyday user of Heroin, last use yesterday. Also Marijuana use. Reports they called ahead and spoke with an RN about the options for rehab. pt c/o nausea. Reports she is almost 8 weeks History of Present Illness The patient is a 32 year old female who presents to the Emergency Room with complaints of requesting detox from heroin abuse. Patient's been using heroin for 2 years. She is currently 8 weeks . She uses 3-5 bags a day. Patient states she snorts heroin. She also smokes marijuana. Patient states the detox facility needs her medically cleared before they will take her. Patient denies any current medical complaints. Patient denies chest pain, dyspnea, fever, chills, delusions, hallucinations, hearing voices, suicidal or homicidal ideations. Patient states she's is requesting detox. Patient states she contacted the [place] detox facility in [facility] as her insurance approves for her to go to detox there and states they need her medically cleared before she can go there. Review of Systems See HPI for pertinent positives & negatives. A total of 10 systems reviewed and were otherwise negative. Past Medical/Surgical History Medical Problems: (1) Asthma exacerbation (2) Cyclitis (3) Exacerbation of asthma (4) Hypoxia (5) Marijuana abuse (6) Meconium in amniotic fluid affecting management of mother (7) Normal (8) Pain, dental (9) (10) Schizophrenia (11) SOB (shortness of breath) (12) Tobacco abuse (13) Vaginal bleeding Surgical Problems: (1) No significant past surgical history Family History No significant family history Social History Smoking Status: Current Every Day Smoker Alcohol Use: none Drug Use: heroin, marijuana Marital Status: single Housing Status: lives with family Occupation Status: unemployed Current/Historical Medications Scheduled Mometasone Furoate-Formoterol (Dulera 100/5 Mcg), 2 PUFFS INH BID Multivit/Min/Iron/Fol Ac/Pren ( Vitamin), 1 TAB PO DAILY Ondansetron Hcl (Zofran), 8 MG PO TID Scheduled PRN Albuterol Hfa (Ventolin Hfa), 2 PUFFS INH Q6H PRN for SOB/Wheezing Allergies Coded Allergies: No Known Allergies (Verified , 02/01/17) Physical Exam Vital Signs Date Time Temp Pulse Resp B/P (MAP) Pulse Ox O2 Delivery O2 Flow Rate FiO2 02/01/17 01:53 72 18 101/64 99 Room Air 02/01/17 00:10 36.7 77 18 104/63 97 Room Air Physical Exam VITALS: Vitals are noted on the nurse's note and reviewed by myself. Vital signs stable. GENERAL: Pleasant female cooperative, in no acute distress, nondiaphoretic, well -developed well-nourished. SKIN: The skin was without rashes, erythema, edema, or bruising. There is no tenting of the skin. Capillary reflex less than 2 seconds. HEAD: Normocephalic atraumatic. EARS: External auditory canals clear, tympanic membranes pearly alejandro without erythema or effusion bilaterally. EYES: Pupils equal round and reactive to light and accommodation. Conjunctivae without injection, sclerae without icterus. Extraocular movements intact. NOSE: Patent, turbinates without inflammation or discharge. MOUTH: Mucous membranes moist. Pharynx without erythema or exudate. Uvula midline. Airway patent. Tongue does not deviate. NECK: Supple without nuchal rigidity. No lymphadenopathy. No thyromegaly. Cervical spine is nontender. No JVD. HEART: Regular rate and rhythm without murmurs gallops or rubs. LUNGS: Clear to auscultation bilaterally without wheezes, rales or rhonchi. No dullness to percussion. No retractions or accessory muscle use. ABDOMEN: Positive bowel sounds x 4. Normal tympanic percussion. Soft, nontender, without masses or organomegaly. Crawford sign negative. No guarding or rebound tenderness. MUSCULOSKELETAL: No muscle atrophy, erythema, or edema noted. NEURO: Patient was alert and oriented to person place and time. Normal sensation to light and sharp touch. No focal neurological deficits. Psych: Pleasant and cooperative Medical Decision & Procedures ED Course Prior records/ancillary studies reviewed. Triage Nursing notes reviewed. Additional history obtained from family The patient's history was concerning for detox Differential diagnosis: Etiologies such as substance abuse, toxicologic, as well as others were entertained. Physical examination: The physical examination was performed as above and was completely benign. No emergent medical pathologies were noted. ER treatment provided: Patient was observed On reassessment the patient felt better. Diagnostic interpretation by me: No diagnostic studies were performed based upon the history and physical examination. Case management, Livia, contacted [place] detox facility and requests a mental health evaluation and then in the morning they will be able to admit her if there is a bed available. Mental health was consulted. Proper paperwork was faxed over to this facility so patient can be evaluated for possible admission for detox. Case management to care of this. Consultation: A consultation was placed with mental health. The patient was evaluated by mental health in the emergency department and they felt admission was not warranted. The area of her health buildup proper paperwork so the patient could be evaluated for possible admission to detox facility. Exam and history seem consistent with heroin abuse requesting detox. Patient is currently . Patient has no medical complaints. She is cleared medically and mentally. She should be allowed to be admitted to detox facility for treatment for her heroin. She is advised to return to the ER immediately for chest pains, abdominal pains, fever health concerns, worsening signs or symptoms or as needed. By the evaluation outlined above emergent etiologies such as infection, hypoglycemia, electrolyte abnormalities, cardiac sources, intracerebral event, toxicologic, neurologic,as well as others were deemed relatively unlikely. It appears the patient is dealing with a psychiatric disturbance. The pt informed about the findings as listed above. All questions were answered and pleased with the treatment. Return instructions were outlined and the patient was discharged in stable condition. Referral: Go to your detox facility. You are medically and mentally cleared. Medical Decision As above Impression Primary Impression: Heroin abuse affecting Departure Information Dispostion Other (detox facility) Condition GOOD Referrals No Doctor, Assigned (PCP) Patient Instructions [facility] Additional Instructions Recommend no alcohol, drug use or tobacco use. Recommend that you go straight to your detox facility. Call to make sure your bed is still available. You are medically and mentally cleared to go to detox. Follow-up family care in 2-3 days as needed. Return to ER sooner for chest pain, difficulty breathing, delusions, hallucinations, worsening signs or symptoms or as needed. Problem Qualifiers Primary Impression: Heroin abuse affecting Trimester: first trimester Qualified Codes: O99.321 - Drug use complicating , first trimester
[2017-02-01 03:22] VITALS: BP 102/62; PULSE 67; O2SAT 99
== END 2017-02-01 03:23 | disposition home or self-care (01) ==
LOC: C.EDB 23:58
DX: O99.321 Drug use complicating pregnancy, first trimester (principal); F11.10 Opioid abuse, uncomplicated; F20.9 Schizophrenia, unspecified; J45.909 Unspecified asthma, uncomplicated; F17.200 Nicotine dependence, unspecified, uncomplicated

== ENCOUNTER 2017-08-08 19:34 | Emergency (ER) | payer OTHER ==
[~2017-08-08 19:34] MED LIST changes: +MOME100A INH; +ONDA8TAB6 PO; +PRENTAB26 PO
== END 2017-08-08 20:00 | disposition left against medical advice (07) ==
LOC: C.EDB 19:35
DX: R51 Headache (principal)

== ENCOUNTER 2017-08-08 20:20 | Observation (INO) | payer OTHER ==
[2017-08-08] MEDS ORDERED: LACTATED RINGER'S 1000ML 1,000 ML IV SCH (20:23)
[2017-08-08] MEDS ORDERED: LACTATED RINGER'S 1000ML 500 ML IV ONE (20:23)
[2017-08-08] MEDS ORDERED: ONDANSETRON INJ 2 MG/ML 2 ML VIAL IV PRN (20:30)
[2017-08-08 20:47] LABS: BASO % 0.1 %; BASO ABS # 0.01 K/uL (0-0.2); EOS % 0.5 %; EOS ABS # 0.05 K/uL (0-0.5); HEMATOCRIT 30.1 % (37-47); HEMOGLOBIN 10.2 g/dL (12.0-16.0); IG# 0.03 K/uL (0.00-0.02); LYMPH % 14.1 %; LYMPH ABS # 1.45 K/uL (1.2-3.4); MEAN CELL VOLUME 90.1 fL (80-100); MEAN CORPUSCULAR HEMOGLOBIN 30.5 pg (25-34); MEAN CORPUSCULAR HGB CONC 33.9 g/dl (32-36); MEAN PLATELET VOLUME 9.1 fL (7.4-10.4); MONO % 5.7 %; MONO ABS # 0.59 K/uL (0.11-0.59); NEUT % 79.3 %; NEUT ABS # 8.19 K/uL (1.4-6.5); PLATELET COUNT 228 K/uL (130-400); RED CELL DISTRIBUTION WIDTH CV 14.2 % (11.5-14.5); RED CELL DISTRIBUTION WIDTH SD 46.5 fL (36.4-46.3); WHITE BLOOD COUNT 10.32 K/uL (4.8-10.8)
[2017-08-08] MEDS ORDERED: ACETAMINOPHEN 500 MG TAB PO ONE (21:03)
[2017-08-08 21:10] LABS: ALBUMIN 2.4 gm/dl (3.4-5.0); ALKALINE PHOSPHATASE 120 U/L (45-117); ALT/SGPT 12 U/L (12-78); AST/SGOT 14 U/L (15-37); BLOOD UREA NITROGEN 5 mg/dl (7-18); CALCIUM 8.6 mg/dl (8.5-10.1); CARBON DIOXIDE 22 mmol/L (21-32); CREATININE 0.42 mg/dl (0.60-1.20); GLUCOSE 85 mg/dl (70-99); POTASSIUM 3.8 mmol/L (3.5-5.1); SODIUM 137 mmol/L (136-145); TOTAL PROTEIN 6.6 gm/dl (6.4-8.2)
[2017-08-08] MEDS ORDERED: DiphenhydrAMINE INJ 50 MG in SYRINGE 0 ML IV SCH (22:45)
[2017-08-08] MEDS ORDERED: DEXAMETHASONE INJ 10 MG in SYRINGE 0 ML IV ONE (23:00)
[2017-08-08] MEDS ORDERED: DiphenhydrAMINE HCL 50 MG/ML VIAL IV ONE (23:00)
[2017-08-09] MEDS ORDERED: IV FLUIDS COMPLETED PRN (03:00)
--- NOTE | 2017-08-09 08:01 | Discharge Instructions ---
Discharge Instructions Date of Service Aug 09, 2017. Admission Reason for Admission: Nausea/Vomiting Discharge Discharge Diagnosis / Problem: at 30 weeks, headache in pregbnancy Discharge Goals Goal(s): Continuing OB care Activity Recommendations Activity Limitations: as noted below ACTIVITY RECOMMENDATIONS: See Labor Sheet. SPECIAL CARE INSTRUCTIONS: Call Doctor if: * Regular contractions every 5 minutes or greater than contractions in one hour. * Bleeding * Water breaks or is leaking * Decreased movement * Fever >100.4 degrees F * Pain not relieved by routine measures or pain medication ordered. FOLLOW UP VISIT: Return to Labor and Delivery on for /call for appointment time . Follow-up Visit with: When: . Current Hospital Diet Patient's current hospital diet: Discharge Diet Recommended Diet: Regular Diet Pending Studies Studies pending at discharge: no Medical Emergencies . Who to Call and When: Medical Emergencies: If at any time you feel your situation is an emergency, please call 911 immediately. . Non-Emergent Contact Non-Emergency issues call your: Specialist . . "Provider Documentation" section prepared by Elgin Shanks. . VTE Core Measure Inpt VTE Proph given/why not?: Treatment not indicated
--- NOTE | 2017-08-09 08:05 | Progress Note ---
Progress Note Date of Service Aug 09, 2017. Progress Note Pt feeling much better Headache is improved Pt had appt @ methadone clinic this morning VE; close/no effacement and posterior d/c home with instructions
--- NOTE | 2017-08-09 09:23 | DISCHARGE SUMMARY ---
HISTORY OF PRESENT ILLNESS: The patient is a 32-year-old at 30+ gestation. The patient's is complicated by history of drug abuse and is on methadone. She presented on 08/08/2017 to the ER with severe headache. Headache was clustered in and around earlobe. On arrival to labor and delivery, she had no shortness of breath, no chills, no fever. She also had what she described as pain on the higher ribs. Once the patient was placed on the monitor, CBC and complete chemistry was ordered. Blood pressure was normal. She had trace protein. CBC showed normal platelets. Complete chemistry showed normal LFTs. At this point, preeclampsia was ruled out. Patient had been on methadone, had used heroin that morning. I spoke to from the ER as far as what did he use for treatment of headache. He initially recommended that we give the patient Tylenol. After 1000 mg of Tylenol, the patient's headache did not improve. I had another discussion with him and after a long discussion with him, he then recommended that we give the patient Decadron and Benadryl. The patient remarkably improved after Decadron and Benadryl and slept through the night. This morning, the patient is feeling much better and her headache is much improved. She is scheduled for a.m. methadone at 9:00. She is therefore being discharged. Pelvic exam showed cervix is closed, no effacement in posterior. The patient has therefore been discharged home so she can go to the methadone clinic appointment this morning and follow up with us in clinic. PAST MEDICAL HISTORY, FAMILY HISTORY, SOCIAL HISTORY: All have been reviewed. PHYSICAL EXAMINATION: GENERAL: Well-developed, well-nourished white female in no acute distress. LABORATORY DATA: Reviewed as in the HPI. REVIEW OF SYSTEMS: Negative except as in the HPI. CONDITION ON DISCHARGE: Stable. OBSERVATION: The patient was observed overnight. DISCHARGE DIAGNOSES: 1. Headache in . 2. History of drug abuse. PLAN ON DISCHARGE: The patient has been discharged home with instructions regarding activity, diet, followup appointment, and medications. ABBY
== END 2017-08-09 08:36 | disposition home or self-care (01) ==
LOC: C.OPB 20:20 → C.LD 20:20 → C.OPB 23:36 → C.LD 08-09 00:20
PROVIDERS: ADMIT Obstetrics & Gynecology; ATTEND Obstetrics & Gynecology
DX: O09.891 Supervision of other high risk pregnancies, first trimester (principal); R51 Headache; F11.10 Opioid abuse, uncomplicated; F17.200 Nicotine dependence, unspecified, uncomplicated; Z79.899 Other long term (current) drug therapy; Z3A.30 30 weeks gestation of pregnancy